=== PATIENT | male | born 1965 | race Two or more races ===

== ENCOUNTER 2024-04-17 11:05 | Outpatient (AMB) | payer MEDICAID, SELFPAY ==
--- NOTE | 2024-04-17 11:07 | A.SPINEOV_ITS ---
Intake Visit Reasons: low back pain Intake Note: Mr. Scott is here today c/o pain in the back of both legs. Refurbish Technician Required: Yes Refurbish Technician Name: Tablet Allergies No Known Allergies Allergy (Verified 04/17/24 11:08) Assessment & Plan Assessment & Plan (1) Lumbar disc herniation: Code(s): M51.26 - Other intervertebral disc displacement, lumbar region Category: Medical Plan Dear Garry, Thank you for referring Mr Scott to our office today. This is a very nice 58-year-old gentleman who suffered an unfortunate incident where he fractured his penis during intercourse. He ended up undergoing a 6 hour surgery to repair that. He had been having a little bit of right leg pain before the surgery, but after the surgery he noticed an increase in his back pain and bilateral leg pain, right greater than left. It goes down the back of his legs into his calves. He was trying to deal with it just using Motrin, lidocaine patches and cyclobenzaprine. Unfortunately the pain got so bad that he has been unable to walk more than short distances without having to sit down. He is tossing and turning all night. He underwent an MRI at the [facility] showing herniated disc at L4-5 more off to the right side. He was referred to us urgently because of the amount of pain he has been in. He has been mostly just staying low Ki not doing much activity. He has been out of work. He can not participate in any kind of activity. He has not started any physical therapy or had any cortisone injections yet. PMH: He is a diabetic, but in generally tells me his A1c is generally in a good range and his blood sugars are well controlled on metformin. He had recent repair of a penile fracture. He tells me he has regained function of his penis but not back to completely normal. History of an appendectomy and high cholesterol. No other major medical problems. Social hx: He does not smoke, drink use any recreational drugs Medications: Baby aspirin, atorvastatin, cyclobenzaprine, famotidine, ibuprofen, metformin, cyclobenzaprine Allergies: None Physical exam: Visit done with the help of an golf cart repairer through the iPad, the patient has positive straight leg raise on the right leg at 30 degrees, the left leg at 45 degrees. He has some mild weakness of his right dorsiflexion. I would rate this as 4-5. He has an antalgic gait and difficulty just standing up into a vertical position. Reflexes are intact. Imaging review: Lumbar MRI done at the [facility] about 1 week ago showing herniated disc at L4-5 causing moderate to severe central canal stenosis. Disc herniation appears to be set off more slightly to the right. Impression: 58-year-old male presents with herniated disc at L4-5 with bilateral lower extremity pain, right greater than left. He has a little bit of weakness in his right dorsiflexion which I would rate as 4-5. No sensory loss. He has significant pain with standing and walking, even in the office here today he is very uncomfortable just getting up into a vertical position. I reviewed his MRI with him, with the help of an golf cart repairer, and explained to him that he has a herniated disc at the L4-5 causing moderate to severe central canal stenosis and compression of both the L5 nerves in the lateral recess. We discussed the fact that 90% of these get better on their own if given enough time. He has now had the pain for 2 months or more and it has only been esc alating. He can barely walk, he can barely sleep. He does have weakness in his right foot with positive straight leg raise bilaterally. I offered him the option of going to PT or considering injection versus lumbar microdiskectomy. The patient feels like he is just in too much pain to be able to tolerate doing those other things and wishes to consider surgery. I reviewed the images with Dr. Anderson who agrees a right-sided approach for L4-5 microdiskectomy would be reasonable. Pt was given risk and benefits of surgery including but not limited to infection, hematoma , nerve injury,durotomy, weakness,bowel/bladder injury, persistent pain, recurrent lumbar disc as well as the option to continue with conservative treatment and patient wishes to proceed with surgery. Pt is aware they should stop their motrin, aspirin 7 days prior to surgery. All questions were answered to the best of our ability. If there is anything about this patients medical history that we have overlooked or concerns you have about us proceeding with surgery we would appreciate any input you can offer. Thank you for allowing us to care for your patient. The total time spent with this visit with this patient was 45 minutes reviewing history, physical exam, lumbar imaging review, and implementation of treatment plan or further diagnostic testing Blayne Anderson MD,PhD [facility] Coding Level of Care Code New Pt Level 4 (01393) Diagnoses Lumbar disc herniation M51.26
== END 2024-04-17 11:56 | disposition home or self-care (01) ==
PROVIDERS: PCP Nurse Practitioner Family; Referring Provider Nurse Practitioner Family; Visit Provider Physician Assistant
DX: M51.26 Other intervertebral disc displacement, lumbar region (principal)
CPT/HCPCS: 99204

== ENCOUNTER → 2024-04-17 11:05 | Outpatient (BNVA) | payer MEDICAID, SELFPAY | PROVIDERS: PCP Nurse Practitioner Family; Visit Provider Physician Assistant | DX: M51.26 Other intervertebral disc displacement, lumbar region (principal) | CPT/HCPCS: 99212 ==

== ENCOUNTER → 2024-05-07 13:08 | Outpatient (BNV) | payer MEDICAID, SELFPAY | PROVIDERS: Visit Provider Internal Medicine | DX: M51.26 Other intervertebral disc displacement, lumbar region (principal); Z01.810 Encounter for preprocedural cardiovascular examination | CPT/HCPCS: 93010 ==

== ENCOUNTER 2024-05-21 06:02 | Day surgery (SDC) | payer MEDICAID, SELFPAY ==
--- NOTE | 2024-05-07 | ECG_ITS ---
Test Reason : PREOP Blood Pressure : / mmHG Vent. Rate : 066 BPM Atrial Rate : 066 BPM P-R Int : 132 ms QRS Dur : 096 ms QT Int : 392 ms P-R-T Axes : 037 007 034 degrees QTc Int : 410 ms Normal sinus rhythm Normal ECG No previous ECGs available Referred By: Ashley Farrell Electronically Signed By:SANDRA SMITH
[2024-05-07 12:04] VITALS: BP 141/83; PULSE 68; RESP 16; O2SAT 99; BMI 27.4
--- NOTE | 2024-05-07 12:48 | HO.ANESPROP2 ---
Documented by User: Ashley Farrell NP 05/19/24 13:23 HPI - Anesthesia Eval Consult details Narrative: 58yo M for Right L4-5 Microlumbar discectomy, 05/21/24 No recent illness Rare, atypical CP. States had full heart work up in [facility] for same and it all checked out ok. Unable to remember when. No SOB. Activity limited by back pain. DM: Rarely checks POC. ~ 144 GERD: H2 block prn. Needs ~ 1 x weekly PMFSH Active Problems Active Problems: All Active Problems Lumbar disc herniation (Acute) Past Medical History Medical History Leg pain, bilateral Back pain Diabetes HLD (hyperlipidemia) GERD (gastroesophageal reflux disease) History of injury of penis Family History Family history of problems with anesthesia: No Surgical History Surgical History Hx of surgical procedure (~11/2023) Hx of appendectomy History of Problems with Anesthesia: No Social History Social History Are you a primary caregivers non medical to a significant other at home: No Do you presently have visiting nurse or other home services: No Patient Tobacco Use Status: Never used Tobacco Use of substances other than those prescribed or required for medical reasons: No Have you been hit, kicked, punched, or otherwise hurt by someone within the past year? If so, by whom?: No Are you DNR?: No Advance Directives: No Advance Directives Information Provided: Yes Advance Directives on File: No Recently lost weight without trying: No Nutrition Risks: No Nutritional Risk Poor oral hygiene: No Meds Allergies Allergy/AdvReac Type Severity Reaction Status Date / Time No Known Allergies Allergy Verified 05/21/24 06:14 Home Medications ?Medication ?Instructions ?Recorded ?Confirmed ?Last Taken ?Type aspirin 81 mg tablet,delayed 81 mg PO DAILY 05/06/24 05/21/24 05/18/24 History release atorvastatin 20 mg tablet 20 mg PO DAILY 05/06/24 05/06/24 Unknown History cyclobenzaprine 10 mg tablet 10 mg PO BID PRN muscle spasm 05/06/24 05/06/24 Unknown History famotidine 40 mg tablet 40 mg PO DAILY PRN Gastric Reflux 05/06/24 05/21/24 05/21/24 History lidocaine 5 % topical patch 1 patch topical Q3D 05/06/24 05/06/24 Unknown History methocarbamol 750 mg tablet 750 mg PO Q6H PRN Pain 05/06/24 05/06/24 Unknown History metformin 1,000 mg tablet 1,000 mg PO BID 05/07/24 05/07/24 Unknown History Exam Height,Weight and Vital Signs: Height 5 ft 7 in Weight 79.5 kg Last Vital Signs Pulse 68 05/07/24 12:04 Resp 16 05/07/24 12:04 BP 141/83 H 05/07/24 12:04 Pulse Ox 99 05/07/24 12:04 O2 Del Method Room Air 05/07/24 12:04 Pertinent Lab Results Pertinent Lab Results: Lab Results 05/07/24 Range/Units 13:08 WBC 8.1 (4.8-10.8) X10*3/uL RBC 4.85 (4.60-5.80) X10*6/uL Hgb 14.1 (14.0-18.0) g/dl Hct 43.3 (42.0-52.0) % MCV 89.3 (80.0-98.0) fL MCH 29.1 (27.0-33.0) pg MCHC 32.6 (31.0-36.0) g/dl RDW 12.5 (11.0-16.0) % Plt Count 252 (160-400) X10*3/uL MPV 10.9 (9.4-12.4) fL Absolute Nucleated RBC 0.000 (0.0-0.012) X10*3/uL Nucleated RBC % (auto) 0.0 (0.0-0.2) /100WBC Sodium 139 (135-145) mmol/L Potassium 4.3 (3.3-5.1) mmol/L Chloride 108 (96-108) mmol/L Carbon Dioxide 27 (22-29) mmol/L Anion Gap 8 L (12-20) BUN 22 H (9-16) mg/dL Creatinine 0.87 (0.5-1.4) mg/dL Estim Creat Clear Calc 92.4 Estimated GFR > 60 Random Glucose 143 H (60-115) mg/dL Estimat Average Glucose 134 mg/dL Hemoglobin A1c % 6.3 H (<6.0) % Calcium 8.8 (8.4-10.2) mg/dL Narrative Narrative: EKG 04/2024 Vent. Rate : 066 BPM Atrial Rate : 066 BPM P-R Int : 132 ms QRS Dur : 096 ms QT Int : 392 ms P-R-T Axes : 037 007 034 degrees QTc Int : 410 ms Normal sinus rhythm Normal ECG No previous ECGs available Airway Mallampati Class: II TM Dist: >3cm Neck ROM: Full Loose/Missing/Broken Teeth: Yes (Molars extracted, Crowned molars) Heart: RRR Lungs: CTAB Assessment and Plan Assessment Anesthesia Assessment: Anesthesia Plan Discussed and PAT Visit Final Anesthetic Review Family History of Problems with Anesthesia: No History of Problems with Anesthesia: No Documented by User: Meghan Clark MD 05/21/24 07:36 PMFSH Past Medical History Medical History Leg pain, bilateral Back pain Diabetes HLD (hyperlipidemia) GERD (gastroesophageal reflux disease) History of injury of penis Surgical History Surgical History Hx of surgical procedure (~11/2023) Hx of appendectomy Social History Social History Are you a primary caregivers non medical to a significant other at home: No Do you presently have visiting nurse or other home services: No Patient Tobacco Use Status: Never used Tobacco Use of substances other than those prescribed or required for medical reasons: No Have you been hit, kicked, punched, or otherwise hurt by someone within the past year? If so, by whom?: No Are you DNR?: No Advance Directives: No Advance Directives Information Provided: Yes Advance Directives on File: No Recently lost weight without trying: No Nutrition Risks: No Nutritional Risk Poor oral hygiene: No Meds Allergies Allergy/AdvReac Type Severity Reaction Status Date / Time No Known Allergies Allergy Verified 05/21/24 06:14 Home Medications ?Medication ?Instructions ?Recorded ?Confirmed ?Last Taken ?Type aspirin 81 mg tablet,delayed 81 mg PO DAILY 05/06/24 05/21/24 05/18/24 History release atorvastatin 20 mg tablet 20 mg PO DAILY 05/06/24 05/06/24 Unknown History cyclobenzaprine 10 mg tablet 10 mg PO BID PRN muscle spasm 05/06/24 05/06/24 Unknown History famotidine 40 mg tablet 40 mg PO DAILY PRN Gastric Reflux 05/06/24 05/21/24 05/21/24 History lidocaine 5 % topical patch 1 patch topical Q3D 05/06/24 05/06/24 Unknown History methocarbamol 750 mg tablet 750 mg PO Q6H PRN Pain 05/06/24 05/06/24 Unknown History metformin 1,000 mg tablet 1,000 mg PO BID 05/07/24 05/07/24 Unknown History Assessment and Plan Final Anesthetic Review NPO: Yes ASA Class: II Final Preanesthetic Review: Meds/Allgs Chart Reviewed, Consent Obtained/Reviewed and Anes Risks/Benef Reviewed Patient Risk: Low Procedure Risk: Intermediate Anesthetic Plan Anesthetic Plan: GA Disposition: Standard PACU
[2024-05-07 13:51] LABS: Hematocrit 43.3 % (42.0-52.0); Hemoglobin 14.1 g/dl (14.0-18.0); Mean Corpuscular HGB Conc 32.6 g/dl (31.0-36.0); Mean Corpuscular Hemoglobin 29.1 pg (27.0-33.0); Mean Corpuscular Volume 89.3 fL (80.0-98.0); Mean Platelet Volume 10.9 fL (9.4-12.4); Platelet Count 252 X10*3/uL (160-400); Red Blood Count 4.85 X10*6/uL (4.60-5.80); Red Cell Distribution Width 12.5 % (11.0-16.0); White Blood Count 8.1 X10*3/uL (4.8-10.8)
[2024-05-07 13:56] LABS: Estimated Average Glucose 134 mg/dL; Hemoglobin A1C 167.0807 umol/L; Hemoglobin A1c % 6.3 % (<6.0); Total Hemoglobin (HGBA1C) 3645.8338 umol/L
[2024-05-07 14:18] LABS: Anion Gap 8 (12-20); Blood Urea Nitrogen 22 mg/dL (9-16); Calcium 8.8 mg/dL (8.4-10.2); Carbon Dioxide 27 mmol/L (22-29); Chloride 108 mmol/L (96-108); Creatinine Clr Calc Pharmacy 92.4; Estimated Glomerular Filt Rate > 60; Glucose Random 143 mg/dL (60-115); Potassium 4.3 mmol/L (3.3-5.1); Sodium 139 mmol/L (135-145)
[2024-05-21] VITALS (11 sets, daily range): BP systolic 110–139; BP diastolic 62–79; PULSE 53–79; RESP 12–16; TEMP 35.8–36.4; O2SAT 95–100
[2024-05-21] MEDS: methocarbamoL 750 MG TABLET PO (06:33)
[2024-05-21] MEDS: Gabapentin 300 MG CAPSULE PO (06:33)
[2024-05-21] MEDS: Lactated Ringers 1,000 ML 100 ML IVCONT (06:45)
[2024-05-21 06:53] LABS: Glucose, Whole Blood 106 mg/dL (60-115)
--- NOTE | 2024-05-21 06:59 | P.HPSUR_ITS ---
Pre-Procedural Eval Section A - 24 Hr Update-Section A only Date of Service: 05/21/24 The patient is an INPATIENT: No Changes since office visit: No Cold of Flu in the past 2 weeks, No New Medical Problems, No Changes in Medication and No Patient answered all questions The patient has been examined within 24 hours of the surgical procedure. The History & Physical has been completed within 30 days and I have reviewed it.: No Section B - Complete if H&P > 30 days Chief Complaint: Other intervertebral disc displacement, lumbar reg Allergies: Allergies Allergy/AdvReac Type Severity Reaction Status Date / Time No Known Allergies Allergy Verified 05/21/24 06:14 Review of Systems Sugical H&P ROS: Negative: Constitution, Cardiovascular, Respiratory, Neurological, Psychiatric, Hem-Onc, Allergic/Immunologic, Gastrointestinal, Genitourinary, Musculoskeletal, Integumentary, Endocrine and Eyes/Ears/Nose/Thr oat Exam Surgical H&P Exam: Normal: HEENT, Normal: Heart, Normal: Lungs, Normal: Extremities, Normal: Abdomen, Normal: Skin and Normal: Neurological (awake, alert,oriented x 3, weakness right DF 4/5 ) Plan Diagnosis/Plan: Unchanged right L4-5 microdiskectomy Time Spent With Patient Time: Total time managing care of this patient today __6__ minutes.
--- NOTE | 2024-05-21 08:23 | P.OP_ITS ---
Operative Note Operative Note Date of Service: 05/21/24 Narrative: Preoperative diagnosis: Right L5 lumbar radiculopathy due to disc herniation Postoperative diagnosis: Same Procedure: Right L4-5 lumbar microdiskectomy with microscope Surgeon: Daniel Anderson MD, PhD Carbon Coating Machine Operator: vijaya Pham This patient is suffering from right lumbar radiculopathy with mild weakness. The patient was offered a lumbar microdiskectomy to decompress the nerve root. The procedure complications were explained. The patient was consented. The patient was brought to the operating room and endotracheally intubated. The patient was turned in a prone position on the Mariano frame. Prepping and draping was done followed by time-out. A mid lumbar incision was made followed by release of the paravertebral muscles on the right side to expose the L4-5 interspace. An intraoperative x-rays obtained to confirm the correct level. The microscope was brought in. A right laminotomy was done followed by opening of the flavum ligament. The L5 nerve root was identified and retracted medially to expose the L4-5 disc space. I could palpate a disc herniation medial from the L5 nerve root, which I carefully removed with a pituitary. The disc space was inspected and any residual disc fragments were removed. This resulted in an excellent decompression of the right L5 nerve root. A long nerve was moved under the thecal sac without resistance. Hemostasis was done. The microscope was removed. Marcaine was injected intramuscularly.The incision was closed in two layers. Steri-Strips used to approximate the incision. An op-site were taken there was used to cover the incision. All sponge and needle counts were correct. Patient was extubated and transported in stable condition to recovery room. this procedure was done with the aid of a physician assistant bookkeeper who performed the initial exposure until the microscope was brought in and performed the closure of the incision. Anesthesia: General Blood loss: 10 mL Complications: None Specimen: None Surgical time: 30 minutes Disposition: Discharge home
--- NOTE | 2024-05-21 08:30 | PM.DS ---
DS: Providers Provider Date of Service: 05/21/24 Date of discharge: 05/21/24 Primary care physician: Unknown Physician Admitting clinician: Daniel Anderson DS: Diagnosis Discharge Diagnosis (1) Lumbar disc herniation: Status: Acute DS: Summary Time Attestation Discharge Coordination Time (in mins): 5 Quality: Safe Use of Opioids Does Pt have an Active Cancer Diagnosis on the Problem List?: No Quality: Stroke Does the patient have a stroke diagnosis?: No Physical Exam Vital Signs: Vital Signs: Last Vital Signs Temp 96.4 F L 05/21/24 06:50 Pulse 61 05/21/24 06:50 Resp 12 05/21/24 06:50 BP 123/72 05/21/24 06:50 Pulse Ox 98 05/21/24 06:50 O2 Del Method Room Air 05/21/24 06:50 BMI result Body Mass Index 27.4 DS: Data Data Completed and Pending Labs on day of discharge: Laboratory Results - last 24 hr 05/21/24 06:49 POC Glucose 106 Discharge Plan Discharge Patient Disposition: Home, Self-Care Referrals: Physician,Unknown J [Primary Care Provider] - 1 Week Discharge Medications: New docusate sodium [Colace] 100 mg capsule 100 mg PO BID Qty: 20 0RF oxycodone 5 mg tablet 5 mg PO Q4H PRN (Reason: pain) Qty: 20 0RF Rx Instructions: Partial Fill upon patient request. Continued cyclobenzaprine 10 mg tablet 10 mg PO BID PRN (Reason: muscle spasm) atorvastatin 20 mg tablet 20 mg PO DAILY famotidine 40 mg tablet 40 mg PO DAILY PRN (Reason: Gastric Reflux) methocarbamol 750 mg tablet 750 mg PO Q6H PRN (Reason: Pain) lidocaine 5 % adhesive patch,medicated 1 patch topical Q3D metformin 1,000 mg Tablet 1,000 mg PO BID Held aspirin 81 mg tablet,delayed release (DR/EC) 81 mg PO DAILY Hold Instructions: Resume on 05/28/24. You may resume aspirin 7 days after surgery Discharge Orders: Discharge Order (Routine); Ordered 05/21/24 Ordered By: Blayne Coelho Diet: Advance to usual diet Activity on Discharge: As tolerated Activity Restrictions/Additional Instructions: After your spinal surgery we ask you to observe the following restrictions/guidelines: Activity: It is normal to feel some discomfort as you increase your activity, but that will improve with time. We ask you avoid heavy lifting or acitivities that cause pain. As a general rule, 8lbs is a safe limit for lifting right after surgery. Walk as much as you feel comfortable but not to exhaustion. You will feel extra tired the first few days after surgery. Stay well hydrated. It is OK to walk up and down stairs You may return to driving when you are off narcotics (such as vicodin, oxycodone, dilaudid, etc), and you are back to normal functional capacity. If you have any concerns please check with office before driving. Return to work is specific to each patient and each surgery, so please speak with your doctor/PA at first follow up. Please bring paperwork such as FMLA at that time if you need it filled out. Medications: You may resume aspirin 7 days after surgery For optimum pain control, it is best to start with a combination of 500 mg of Tylenol every 4 hours with 600 mg of Motrin every 8 hours, and use narcotics as needed in between for breakthrough pain. We will give you a short supply of narcotics after surgery (usually one weeks worth). If you need more please call the office but do not use more than prescribed. You will need to give our office 48 hours notice if you need narcotics refilled and we do not fill narcotics on weekends or evenings. If you are on a narcotic, it is a good idea to take a stool softener such as colace or senna to avoid constipation If you take blood thinner such as aspirin, Plavix, Coumadin, Effient, Eliquis etc for conditions such as Afib, DVT, Pulmonary embolus, coronary disease, stents etc please speak with your surgeon about specific details as to when you can resume these medications. You can resume NSAIDs on post op day 1 (eg: Motrin, Naproxen, etc). Follow up: Please call the office, , after surgery to arrange a 3 week follow up for wound check. Wound Care: You may remove your dressing on the first day after surgery. ?You may ?leave open to air. Please do not remove the steri strips underneath. they will fall off on their own in one week. IT IS NORMAL FOR THE WOUND TO OOZE OR BE BLOODY FOR A FEW DAYS AFTER SURGERY. ?IF THIS HAPPENS JUST PLACE NEW DRESSING OVER IT TO AVOID STAINING CLOTHES. You may shower on post op day # 1 We ask that you do not let the water soak the wound. If it does get wet, just towel dry lightly. Please do not scrub your incision or place any type of chemical/ointment on the wound. No tub baths, pools or jacuzzis for one month. If you have any leaking or redness from your wound, or fevers, please call office Print Language: Sinhala
[2024-05-21] MEDS: oxyCODONE HCl Immed Release 5 MG TABLET PO (09:09)
[2024-05-21] MEDS: HYDROmorphone HCl 0.5 MG/0.5 ML SYRINGE 0.25 MG IVPUSH ×2 (09:21→09:26)
== END 2024-05-21 10:40 | disposition home or self-care (01) ==
PROVIDERS: Nurse Practitioner; Visit Provider Neurological Surgery
PROC: (CPT 63030; principal; 2024-05-21 07:30)
DX: M51.16 Intervertebral disc disorders with radiculopathy, lumbar region (principal); E11.9 Type 2 diabetes mellitus without complications; E78.00 Pure hypercholesterolemia, unspecified; Z87.81 Personal history of (healed) traumatic fracture; Z79.1 Long term (current) use of non-steroidal anti-inflammatories (NSAID); Z79.84 Long term (current) use of oral hypoglycemic drugs; Z79.82 Long term (current) use of aspirin; Z79.899 Other long term (current) drug therapy
CPT/HCPCS: 63030; 36415; 80048; 82947; 83036; 85027; 93005; J0131; J0690; J1100; J1171; J1885; J2003; J2250; J2405; J2704; J3010

== ENCOUNTER → 2024-05-21 06:02 | Outpatient (BNV) | payer MEDICAID, SELFPAY | PROVIDERS: Visit Provider Neurological Surgery | DX: M51.26 Other intervertebral disc displacement, lumbar region (principal); M54.16 Radiculopathy, lumbar region | CPT/HCPCS: 63030; 99499 ==

== ENCOUNTER 2024-05-24 09:20 | Emergency (ER) | payer MEDICAID, SELFPAY ==
--- NOTE | ~2024-05-24 | XR_ITS ---
EXAMINATION: XR LUMBOSACRAL SPINE CLINICAL INFORMATION: Lower back pain. COMPARISON: None available. TECHNIQUE: Three views of the lumbosacral spine. FINDINGS: Straightening of lumbar lordosis. The lumbar vertebral bodies demonstrate normal height. Overall sagittal alignment is maintained. Small endplate degenerative osteophytes at L3-L4 through L5-S1. Mild intervertebral disc space narrowing at L5-S1. Degenerative facet arthropathy at multiple levels. The paraspinous soft tissues appear unremarkable. Bilateral sacroiliac joints are intact. XR/XR lumbar spine 2-3V IMPRESSION: No radiographic evidence of acute abnormality involving the lumbar spine. Mild degenerative changes at L3-L4 through L5-S1. Electronically signed by: Kevin Ruiz MD 05/24/2024 11:19 AM [facility] PARKIN[facility]
[2024-05-24 09:24] VITALS: BP 138/61; PULSE 61; RESP 16; TEMP 36.8; O2SAT 98; BMI 27.4
--- NOTE | 2024-05-24 09:42 | PC.NURSE ---
patient to ED from home with cc low back pain post surgery on . He states that on Saturday after his surgery he was feeling ok until the evening when his pain got really bad. On Saturday it was even worse and he has been unable to lie down and sleep. He has been taking the prescribed pain medications (oxycodone and motrin) but says they are only helping a little bit and he still has severe pain (8/10). Steri strips on surgical site clean and dry. No redness or warmth Pt ambulating slowly with standby.
--- NOTE | 2024-05-24 10:52 | ED_ITS ---
HPI - Back Pain/Injury General Chief Complaint: Back Pain/Injury Stated Complaint: Back pain rec surgery Time Seen by Provider: 05/24/24 10:01 Source: patient Mode of arrival: ambulatory Limitations: no limitations History of Present Illness ED Provider: Anita BARRIENTOS HPI Narrative: This is a 58-year-old male history of lumbar disc herniation status post right L4-5 lumbar microdiskectomy with microscope on 05/21/2024 done here at this hospital with Dr. Anderson. Patient comes in with pain at incision site/mid lower back that radiates into right lower extremity lateral aspect down to the lateral aspect of the calf and into his 1st great toe. He reports pain is significant he has been taking oxycodone 5 mg p.o. q.4 hours as needed for pain as well as ibuprofen with little to no improvement. He has been using crutches for ambulation as he states bearing weight really hurts. He denies numbness, tingling, saddle anesthesias, weakness, incontinence of stool or urine or retention. He also denies fevers, chills. No trauma or falls. Related Data Home Medications ?Medication ?Instructions ?Recorded ?Confirmed aspirin 81 mg tablet,delayed 81 mg PO DAILY 05/06/24 05/21/24 release atorvastatin 20 mg tablet 20 mg PO DAILY 05/06/24 05/06/24 cyclobenzaprine 10 mg tablet 10 mg PO BID PRN muscle spasm 05/06/24 05/06/24 famotidine 40 mg tablet 40 mg PO DAILY PRN Gastric Reflux 05/06/24 05/21/24 lidocaine 5 % topical patch 1 patch topical Q3D 05/06/24 05/06/24 methocarbamol 750 mg tablet 750 mg PO Q6H PRN Pain 05/06/24 05/06/24 metformin 1,000 mg tablet 1,000 mg PO BID 05/07/24 05/07/24 Previous Rx's ?Medication ?Instructions ?Recorded docusate sodium 100 mg capsule 100 mg PO BID #20 caps 05/21/24 (Colace) oxycodone 5 mg tablet 5 mg PO Q4H PRN pain #20 tabs 05/21/24 Allergies Allergy/AdvReac Type Severity Reaction Status Date / Time No Known Allergies Allergy Verified 05/24/24 09:27 Review of Systems Review of Systems: Yes all other systems are reviewed and are negative [facility] Past Medical History Attestation statement: The following information was validated with the patient. Source: old records reviewed and nursing notes reviewed Medical History Leg pain, bilateral Back pain Diabetes HLD (hyperlipidemia) GERD (gastroesophageal reflux disease) History of injury of penis Surgical History Hx of surgical procedure (~11/2023) Hx of appendectomy Social History Social History Are you a primary health care marketing specialist to a significant other at home: No Do you presently have visiting nurse or other home services: No Patient Tobacco Use Status: Never used Tobacco Smoked in Last 30 Days: No Use of substances other than those prescribed or required for medical reasons: No Advance Directives: No Advance Directives Information Provided: Yes Do you have a plan to hurt others: No Plan Physical Exam Vital Signs: Vital Signs: Last Vital Signs Temp 98.3 F 05/24/24 09:24 Pulse 57 05/24/24 12:12 Resp 17 05/24/24 12:12 BP 124/74 05/24/24 12:12 Pulse Ox 98 05/24/24 12:12 O2 Del Method Room Air 05/24/24 12:12 BMI result Body Mass Index 27.4 vss Appearance: Alert.? Oriented X3.? No acute distress.? Head: Normocephalic, atraumatic, no step-offs or deformities Eyes: Pupils equal, round and reactive to light.? CVS: Normal heart rate and rhythm.? Pulses normal.? Respiratory: No respiratory distress.? Breath sounds normal.? Abdomen: Soft and nontender.? Skin: Skin warm and dry.? Normal skin color.? Normal skin turgor.? Extremities: No lower extremity edema.? No calf ttp, negative Tanya bilaterally.. 5/5 strength to bilateral upper and lower extremities Back: Midline tenderness around L4-L5 with surrounding bilateral paraspinous muscle tenderness to palpation. Dressing in that region clean, dry, intact. no C-spine tenderness, full range of motion, no CVA tenderness bilaterally. Normal sensation to bilateral lower extremities. No clonus. Neuro: Oriented X 3.? No motor deficit.? No sensory deficit. CN 2-12 intact Course Reevaluation(s) Reevaluation #1: Patient reports significant improvement after Dilaudid. Lumbar spine no radiographic evidence of acute abnormality involving the lumbar spine. Mild degenerative changes L3-L4 through L5- S1 Discussed case with Dr. Anderson, will have him call the office tomorrow for prompt follow-up. Educated patient on diagnosis and treatment plan, answered all question, patient verbalizes understanding. At this time patient will be discharged home, advised to return with new or worsening symptoms. Educated on worrisome signs and symptoms and when to return. At this time I feel comfortable discharge home. Time: 13:05 Medications Administered Discontinued Medications Generic Name Dose Route Start Last Admin Trade Name Freq PRN Reason Stop Dose Admin Hydromorphone HCl 2 mg 05/24/24 10:50 05/24/24 11:01 Hydromorphone Hcl 2 Mg Tablet PO 05/24/24 10:51 2 mg ONCE ONE Administration Medical Decision Making Medical Decision Making [facility] Narrative: 58-year-old male presents with back pain with radiation to right lower extremity he is status post microdiskectomy L4/5 on 05/21/2024. Physical exam Midline tenderness around L4-L5 with surrounding bilateral paraspinous muscle tenderness to palpation. no C-spine tenderness, full range of motion, no CVA tenderness bilaterally. Normal sensation to bilateral lower extremities. No clonus. History and physical exam likely with normal postoperative pain unlikely complication from procedure. I do not suspect cauda equina, cord compression. No signs of infection. Unlikely DVT or arterial occlusion. Plan pain control, x-ray will reach out to Dr. Anderson surgeon. Differential Diagnosis Differential Diagnoses: The differential diagnosis associated with the presentation includes (History and physical exam likely with normal postoperative pain unlikely complication from procedure. I do not suspect cauda equina, cord compression. No signs of infection. Unlikely DVT or arterial occlusion.) Admission/Observation Consideration of admission/observation: Escalation of care including admission/observation considered Lab Data [facility] Lab Attestation statement: I reviewed the patient's lab results. Discharge Plan Discharge Clinical Impression: Lumbar radiculopathy Patient Disposition: Home, Self-Care Instructions: Lumbar Radiculopathy (ED), Back Pain (ED) Additional Instructions: Take your medications as prescribed. If you were prescribed antibiotics today, it is important that you take your medication to their entirety, do not skip any doses, do not finish them early. Follow-up with your primary care provider this week. Return to the emergency department with new or worsening symptoms. Such as fevers, chills, chest pain, shortness of breath, nausea, vomiting, dizziness, headache, vision changes, lethargy In case of emergency call 911 Continue taking your meds as prescribed. Call Dr. Anderson office first thing tomorrow morning Return with new or worsening symptoms such as numbness, tingling, inability to control bladder or bowel or worsening pain. Prescriptions: No Action cyclobenzaprine 10 mg tablet 10 mg PO BID PRN (Reason: muscle spasm) atorvastatin 20 mg tablet 20 mg PO DAILY famotidine 40 mg tablet 40 mg PO DAILY PRN (Reason: Gastric Reflux) aspirin 81 mg tablet,delayed release (DR/EC) 81 mg PO DAILY methocarbamol 750 mg tablet 750 mg PO Q6H PRN (Reason: Pain) lidocaine 5 % adhesive patch,medicated 1 patch topical Q3D metformin 1,000 mg Tablet 1,000 mg PO BID docusate sodium [Colace] 100 mg capsule 100 mg PO BID Qty: 20 0RF oxycodone 5 mg tablet 5 mg PO Q4H PRN (Reason: pain) Qty: 20 0RF Rx Instructions: Partial Fill upon patient request. Referrals: Daniel Anderson MD, PhD [Physician] - 1 day Stand Alone Forms: Work/School Release Print Language: [place] Ver[place]an
[2024-05-24] MEDS: HYDROmorphone HCl 2 MG TABLET PO (11:01)
[2024-05-24 12:12] VITALS: BP 124/74; PULSE 57; RESP 17; O2SAT 98
[2024-05-24] MEDS: HYDROmorphone HCl 2 MG TABLET 1 MG PO (13:21)
[2024-05-24 13:27] VITALS: BP 124/74; PULSE 57; RESP 17; TEMP 36.8; O2SAT 98
== END 2024-05-24 13:27 | disposition home or self-care (01) ==
PROVIDERS: Emergency Provider Emergency Medicine Emergency Medical Services
DX: M54.16 Radiculopathy, lumbar region (principal); Z79.899 Other long term (current) drug therapy
CPT/HCPCS: 72100; 99283; 99284

== ENCOUNTER 2024-05-25 14:21 | Outpatient (AMB) | payer MEDICAID, SELFPAY ==
--- NOTE | 2024-05-25 14:27 | HO.SPINEOV ---
Intake Visit Reasons: ED f/up Intake Note: Mr. Scott is here to F/u after being in the ED and post-op. Software Engineer Advisor Required: No Allergies No Known Allergies Allergy (Verified 05/24/24 09:27) Assessment & Plan Assessment & Plan (1) S/P lumbar microdiscectomy: Code(s): Z98.890 - Other specified postprocedural states Category: Surgical Plan Software Engineer Advisor used for this encounter: [id number] Yony comes in today as a follow up after presenting to the ED over the weekend for return of severe right sided lumbar radiculopathy. He reports that after the first day of surgery he had complete resolution of his pain. Unfortunately at about 48 hours after surgery he began having severe shooting right-sided radiculopathy once more. He does report that his left radiculopathy is completely gone, but feels as though his right side is just as bad if not worse than before surgery. He denies any numbness/tingling associated with the pain. He denies any bowel/bladder issues, or saddle anesthesia. He ambulates well with a slightly antalgic gait in his using a single crutch to help him with ambulation. He does not appear to have any difficulties a plantar or dorsiflexion. He is wearing a back brace which he purchased over the counter. His Steri-Strips remain in place from the surgery and have not yet fallen off. There is some palpable edema around the incision site but it is clean with no signs of erythema, or fluctuance. It is not warm to touch. There is no drainage. Yony is most likely suffering from severe postoperative inflammation given the description of his symptoms recurrent abruptly after a 1-2 day of symptom resolution. I did review the operative notes from his surgery which seem as though Dr. Anderson was able to get a good decompression from the microdiskectomy. The obvious differential for postoperative inflammation after microdiskectomy surgery with recurrence of radiculopathy is a recurrent disc herniation. I think it is too close to surgery to attempt to obtain MRI imaging at this time as the imaging with likely be confounded by the healing surgical site. I would like to trial the patient on a course of prednisone accompanied by gabapentin in an effort to help mitigate his symptoms and reduce his inflammation. He was encouraged to call our office back in follow up again in 1 week if his symptoms do not reduced in severity. Tal Anderson MD,PhD [facility] Medications: New gabapentin 300 mg PO TID 30 caps 0RF nerve pain methylprednisolone PO PER PKG DIR for 6 days 21 ea 0RF Coding Level of Care Code Global (90865) Diagnoses S/P lumbar microdiscectomy Z98.890
== END 2024-05-25 15:09 | disposition home or self-care (01) ==
LOC: HO.HNS 14:22
PROVIDERS: Visit Provider Physician Assistant
DX: Z98.890 Other specified postprocedural states (principal)
CPT/HCPCS: 99024

== ENCOUNTER → 2024-05-25 14:21 | Outpatient (BNVA) | payer MEDICAID, SELFPAY | PROVIDERS: Visit Provider Physician Assistant | DX: Z98.890 Other specified postprocedural states (principal) | CPT/HCPCS: 99212 ==

== ENCOUNTER 2024-06-03 14:58 | Outpatient (REF) | payer MEDICAID, SELFPAY ==
--- NOTE | ~2024-06-03 | MR_ITS ---
EXAMINATION: MR LUMBAR SPINE WITHOUT AND WITH CONTRAST CLINICAL INFORMATION: Postprocedural radicular pain to the right lumbar spine. Recent disc herniation with microdiscectomy on May 21, 2024. COMPARISON: None available. TECHNIQUE: MRI of the lumbar spine was obtained using routine sequences with and without contrast. Intravenous contrast: Gadolinium Gadavist 8.0 mL without reported immediate complications FINDINGS: [Rib-bearing vertebra labeled T12. Marginal osteophyte formation and disc desiccation from L3-4 to L4-5. No bone marrow STIR signal abnormality. The alignment is normal. Hyperintense T2 STIR with heterogeneous enhancement at the posterior right L4-5 soft tissues without drainable fluid collection. Conus medullaris ends at pedicle of L1 with normal signal. T12-L1: No herniated disc. No neuroforamina stenosis. L1-2: No herniated disc. No neuroforamina stenosis. L2-3: Broad-based disc bulging. Facet joint hypertrophy. No compression upon neural elements. L3-4: Broad-based disc bulging. Facet joint and ligamentum flavum hypertrophy. Reduced AP diameter of the thecal sac and the neural foramina likely encroaching the neural elements. L4-5: Right hemilaminectomy. Broad-based central/right subarticular and foraminal disc herniation reducing the AP diameter of the thecal sac encroaching the neural elements of the thecal sac and the exiting nerve root of L4 and L5. Right neuroforamina stenosis, right greater than left. Facet joint hypertrophy bilaterally. Hypertrophy of the ligamentum flavum. L5-S1: Broad-based disc bulging. Facet joint hypertrophy. Reduced AP diameter of the thecal sac and the neural foramina. No compression upon neural elements. No epidural hematoma or fluid collections. MR/MR lumbar spine wo/w con IMPRESSION: Retained disc herniation central/right subarticular/right foraminal L4-5 compressing the neural elements of the thecal sac and the right L5 and L4 exiting nerve roots. Line multilevel lumbar spondylosis L3-4 to L5-S1. Electronically signed by: Junito Basilio MD 06/04/2024 08:46 AM EST
[2024-06-03] MEDS: gadobutroL 10 ML VIAL IVPUSH (15:42)
== END 2024-06-03 14:59 | disposition home or self-care (01) ==
LOC: HO.MRI 14:58
PROVIDERS: Visit Provider Physician Assistant
DX: Z98.890 Other specified postprocedural states (principal)
CPT/HCPCS: 72158; A9585

== ENCOUNTER → 2024-06-03 14:58 | Outpatient (BNV) | payer MEDICAID, SELFPAY | PROVIDERS: Visit Provider Radiology Diagnostic Radiology | DX: M51.26 Other intervertebral disc displacement, lumbar region (principal) | CPT/HCPCS: 72158 ==

== ENCOUNTER 2024-06-10 06:44 | Day surgery (SDC) | payer MEDICAID, SELFPAY ==
[2024-06-10] VITALS (14 sets, daily range): BP systolic 113–135; BP diastolic 63–78; PULSE 60–83; RESP 16–18; TEMP 36.3–36.6; O2SAT 96–99; BMI 26.6
--- NOTE | 2024-06-10 07:21 | MHC.SHP ---
Pre-Procedural Eval Section A - 24 Hr Update-Section A only Date of Service: 06/10/24 Section B - Complete if H&P > 30 days Chief Complaint: Other intervertebral disc displacement, lumbar reg Allergies: Allergies Allergy/AdvReac Type Severity Reaction Status Date / Time No Known Allergies Allergy Verified 05/24/24 09:27 Review of Systems Sugical H&P ROS: Negative: Constitution, Cardiovascular, Respiratory, Neurological, Psychiatric, Hem-Onc, Allergic/Immunologic, Gastrointestinal, Genitourinary, Musculoskeletal, Integumentary, Endocrine and Eyes/Ears/Nose/Throat Exam Surgical H&P Exam: Not Evaluated: HEENT, Not Evaluated: Heart, Not Evaluated: Lungs, Not Evaluated: Extremities, Not Evaluated: Abdomen, Not Evaluated: Skin and Not Evaluated: Neurological Exam Comment: Patient is alert, oriented, in no acute distress. His proposed surgical incision site is clean, dry, intact. Plan Diagnosis/Plan: Unchanged I have reviewed the history and physical and performed a pertinent physical examination on my patient. No changes have occurred unless specified. Plan remains the same, redo right L4-5 lumbar decompression Time Spent With Patient Time: Total time managing care of this patient today _15___ minutes.
[2024-06-10 07:36] LABS: Glucose, Whole Blood 113 mg/dL (60-115)
[2024-06-10] MEDS: methocarbamoL 750 MG TABLET PO (07:48)
--- NOTE | 2024-06-10 08:25 | HO.ANESPROP2 ---
[facility] Active Problems Active Problems: All Active Problems S/P lumbar microdiscectomy (Acute) Lumbar disc herniation (Acute) Past Medical History Medical History Leg pain, bilateral Back pain Diabetes HLD (hyperlipidemia) GERD (gastroesophageal reflux disease) History of injury of penis Family History Family history of problems with anesthesia: No Surgical History Surgical History Hx of surgical procedure (~11/2023) Hx of appendectomy History of Problems with Anesthesia: No Social History Social History Are you a primary emergency care attendant to a significant other at home: No Do you presently have visiting nurse or other home services: No Patient Tobacco Use Status: Never used Tobacco Use of substances other than those prescribed or required for medical reasons: No Are you DNR?: No Advance Directives: No Advance Directives Information Provided: Yes Meds Allergies Allergy/AdvReac Type Severity Reaction Status Date / Time No Known Allergies Allergy Verified 06/10/24 07:26 Home Medications ?Medication ?Instructions ?Recorded ?Confirmed ?Last Taken ?Type aspirin 81 mg tablet,delayed 81 mg PO DAILY 05/06/24 05/21/24 05/18/24 History release atorvastatin 20 mg tablet 20 mg PO DAILY 05/06/24 05/06/24 Unknown History cyclobenzaprine 10 mg tablet 10 mg PO BID PRN muscle spasm 05/06/24 05/06/24 Unknown History famotidine 40 mg tablet 40 mg PO DAILY PRN Gastric Reflux 05/06/24 05/21/24 06/10/24 History lidocaine 5 % topical patch 1 patch topical Q3D 05/06/24 05/06/24 Unknown History methocarbamol 750 mg tablet 750 mg PO Q6H PRN Pain 05/06/24 05/06/24 Unknown History metformin 1,000 mg tablet 1,000 mg PO BID 05/07/24 05/07/24 Unknown History Exam Height,Weight and Vital Signs: Height 5 ft 7 in Weight 77.111 kg Last Vital Signs Temp 97.9 F 06/10/24 07:29 Pulse 61 06/10/24 07:29 Resp 16 06/10/24 07:29 BP 135/78 06/10/24 07:29 Pulse Ox 99 06/10/24 07:29 O2 Del Method Room Air 06/10/24 07:29 Pertinent Lab Results Pertinent Lab Results: Laboratory Tests 06/10/24 07:33 POC Glucose 113 Airway Mallampati Class: II TM Dist: >3cm Neck ROM: Full Assessment and Plan Assessment Anesthesia Assessment: Anesthesia Plan Discussed and Chart Reviewed Final Anesthetic Review Family History of Problems with Anesthesia: No History of Problems with Anesthesia: No NPO: Yes ASA Class: II Final Preanesthetic Review: No Changes in Pt Med Stat, Meds/Allgs Chart Reviewed, Consent Obtained/Reviewed and Anes Risks/Benef Reviewed Patient Risk: Intermediate Procedure Risk: Intermediate Anesthetic Plan Anesthetic Plan: GA Disposition: Standard PACU
--- NOTE | 2024-06-10 10:17 | PM.DS ---
DS: Providers Provider Date of Service: 06/10/24 Primary care physician: Unknown Physician DS: Summary Time Attestation Discharge Coordination Time (in mins): 15 Quality: Safe Use of Opioids Does Pt have an Active Cancer Diagnosis on the Problem List?: No Quality: Stroke Does the patient have a stroke diagnosis?: No Physical Exam Vital Signs: Vital Signs: Last Vital Signs Temp 97.9 F 06/10/24 07:29 Pulse 61 06/10/24 07:29 Resp 16 06/10/24 07:29 BP 135/78 06/10/24 07:29 Pulse Ox 99 06/10/24 07:29 O2 Del Method Room Air 06/10/24 07:29 BMI result Body Mass Index 26.6 DS: Data Data Completed and Pending Labs on day of discharge: Laboratory Results - last 24 hr 06/10/24 07:33 POC Glucose 113 Discharge Plan Discharge Patient Disposition: Home, Self-Care Referrals: Physician,Unknown J [Primary Care Provider] - 1 Week Discharge Medications: New oxycodone 5 mg tablet 5 mg PO Q6H PRN (Reason: pain (scale score 7-10)) Qty: 30 0RF Rx Instructions: Partial Fill upon patient request. Continued gabapentin 300 mg capsule 300 mg PO TID Qty: 90 11RF cyclobenzaprine 10 mg tablet 10 mg PO BID PRN (Reason: muscle spasm) atorvastatin 20 mg tablet 20 mg PO DAILY famotidine 40 mg tablet 40 mg PO DAILY PRN (Reason: Gastric Reflux) methocarbamol 750 mg tablet 750 mg PO Q6H PRN (Reason: Pain) lidocaine 5 % adhesive patch,medicated 1 patch topical Q3D metformin 1,000 mg Tablet 1,000 mg PO BID docusate sodium [Colace] 100 mg capsule 100 mg PO BID Qty: 20 0RF Held methylprednisolone 4 mg tablets,dose pack 4 mg PO DAILY Qty: 21 0RF Hold Instructions: Resume on 06/10/24. Not currently taking Rx Instructions: take as directed on package oxycodone 5 mg tablet 5 mg PO Q4H PRN (Reason: pain) Qty: 20 0RF Hold Instructions: Resume on 06/10/24. Patient reports being out of this medication, will order new Rx Rx Instructions: Partial Fill upon patient request. aspirin 81 mg tablet,delayed release (DR/EC) 81 mg PO DAILY Hold Instructions: Resume on 06/15/24. hold for 5 days postoperative methylprednisolone 4 mg tablets,dose pack See Rx Instructions PO PER PKG DIR Qty: 21 0RF Hold Instructions: Resume on 06/10/24. Not currently taking Rx Instructions: PO PER PKG DIR for 6 days Discharge Orders: Discharge Order (Routine); Ordered 06/10/24 Ordered By: Tal Bhat Diet: Advance to usual diet Activity on Discharge: As tolerated Activity Restrictions/Additional Instructions: After your spinal surgery we ask you to observe the following restrictions/guidelines: Activity: It is normal to feel some discomfort as you increase your activity, but that will improve with time. We ask you avoid heavy lifting or acitivities that cause pain. As a general rule, 8lbs is a safe limit for lifting right after surgery. Walk as much as you feel comfortable but not to exhaustion. You will feel extra tired the first few days after surgery. Stay well hydrated. It is OK to walk up and down stairs You may return to driving when you are off narcotics (such as vicodin, oxycodone, dilaudid, etc), and you are back to normal functional capacity. If you have any concerns please check with office before driving. Return to work is specific to each patient and each surgery, so please speak with your doctor/PA at first follow up. Please bring paperwork such as FMLA at that time if you need it filled out. Medications: Please resume your aspirin 5 days after surgery You may take NSAIDs tomorrow We recommend you take 1,000mg Tylenol every 8 hours for the first few weeks after surgery, if you do not have any liver issues and can tolerate this medication. Do not exceed 4,000mg daily. We will give you a short supply of narcotics after surgery (usually one weeks worth). If you need more please call the office but do not use more than prescribed. You will need to give our office 48 hours notice if you need narcotics refilled and we do not fill narcotics on weekends or evenings. If you are on a narcotic, it is a good idea to take a stool softener such as colace or senna to avoid constipation If you take blood thinner such as aspirin, Plavix, Coumadin, Effient, Eliquis etc for conditions such as Afib, DVT, Pulmonary embolus, coronary disease, stents etc please speak with your surgeon about specific details as to when you can resume these medications. You can resume NSAIDs on post op day 1 (eg: Motrin, Naproxen, etc). Follow up: Please call the office, , after surgery to arrange a 3 week follow up for wound check. Wound Care: You may remove your dressing on the first day after surgery. ?You may ?leave open to air. Please do not remove the steri strips underneath. they will fall off on their own in one week. IT IS NORMAL FOR THE WOUND TO OOZE OR BE BLOODY FOR A FEW DAYS AFTER SURGERY. ?IF THIS HAPPENS JUST PLACE NEW DRESSING OVER IT TO AVOID STAINING CLOTHES. You may shower on post op day # 1 We ask that you do not let the water soak the wound. If it does get wet, just towel dry lightly. Please do not scrub your incision or place any type of chemical/ointment on the wound. No tub baths, pools or jacuzzis for one month. If you have any leaking or redness from your wound, or fevers, please call the office. Print Language: [place] Leonean
--- NOTE | 2024-06-10 11:11 | P.OP_ITS ---
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 Today's following the diskectomy he developed recurrent severe right leg pain. A repeat MRI is suspi cious for a recurrent disc herniation compressing the right L5 nerve root. The patient was offered a redo lumbar microdiskectomy to decompress the nerve root. The procedure complications were explained. The patient was consented. The patient was brought to the operating room and endotracheally intubated. The patient was turned in a prone position on the Mariano frame. Prepping and draping was done followed by time-out. The previous mid lumbar incision was opened and the laminotomy defect was seen. The L4 laminotomy was extended cranially. Flavum ligament was resected and the underlying dura and exiting L5 nerve root was seen. I was able to find a previous diskectomy defect and with a nerve root I went under the L5 nerve root and was able to retrieve several fragments. Then I continued with removal from fragments from the intradiscal area and from under the thecal sac. This resulted in an excellent decompression of the L5 nerve root. Hemostasis was done. The microscope was removed. Marcaine was injected intramuscularly.The incision was closed in two layers. Steri-Strips used to approximate the incision. An op-site were taken there was used to cover the incision. All sponge and needle counts were correct. Patient was extubated and transported in stable condition to recovery room. this procedure was done with the aid of a physician clinical assistant professor who performed the initial exposure until the microscope was brought in and performed the closure of the incision. Anesthesia: General Blood loss: 10 mL Complications: None Specimen: None Surgical time: 50 minutes Disposition: Discharge home
[2024-06-10] MEDS: fentaNYL citrate/PF 100 MCG/2 ML VIAL 50 MCG IVPUSH (12:30)
== END 2024-06-10 14:16 | disposition home or self-care (01) ==
PROVIDERS: Visit Provider Neurological Surgery
PROC: (CPT 63042; principal; 2024-06-10 08:40)
DX: M51.26 Other intervertebral disc displacement, lumbar region (principal); M79.604 Pain in right leg; R26.89 Other abnormalities of gait and mobility; Z99.89 Dependence on other enabling machines and devices; Z98.890 Other specified postprocedural states
CPT/HCPCS: 63042; 82947; J0131; J0690; J1100; J2003; J2250; J2405; J2704; J3010

== ENCOUNTER → 2024-06-10 06:44 | Outpatient (BNV) | payer MEDICAID, SELFPAY | PROVIDERS: Visit Provider Neurological Surgery | DX: M51.26 Other intervertebral disc displacement, lumbar region (principal) | CPT/HCPCS: 63042; 99499 ==

== ENCOUNTER 2024-07-01 13:31 | Outpatient (AMB) | payer MEDICAID, SELFPAY ==
--- NOTE | 2024-07-01 13:32 | HO.SPINEOV ---
Intake Visit Reasons: 1st post op Intake Note: Mr. Scott is here today for his 1st post op. Adolescent Medicine Specialist Required: No Allergies No Known Allergies Allergy (Verified 07/01/24 13:36) Assessment & Plan Assessment & Plan (1) S/P lumbar microdiscectomy: Code(s): Z98.890 - Other specified postprocedural states Category: Surgical Plan Yony is a pleasant 58 year old male who comes in today for his 2nd postoperative visit. He reports that since his surgery he has been doing much better than he was after the previous surgery. He continues to take the oxycodone in the gabapentin in an effort to mitigate his pain. He reports the pace predominantly in his bilateral lower extremities, right worse than left. We discussed his surgery, and the implications of subsequent disc herniations. If he has recurrent of this issue he will likely need a TLIF at L4-5. No new neurological deficits. The patient ambulates well and rises from a seated position without difficulty. His posterior incision site appears closed and well healing. I would like to follow up with Yony again in 6 weeks for his 2nd postoperative visit. Tal Anderson MD,PhD [facility] Coding Level of Care Code Global (47627) Diagnoses S/P lumbar microdiscectomy Z98.890
== END 2024-07-01 13:54 | disposition home or self-care (01) ==
PROVIDERS: Visit Provider Physician Assistant
DX: Z98.890 Other specified postprocedural states (principal)
CPT/HCPCS: 99024

== ENCOUNTER → 2024-07-01 13:31 | Outpatient (BNVA) | payer MEDICAID, SELFPAY | PROVIDERS: Visit Provider Physician Assistant | DX: Z98.890 Other specified postprocedural states (principal) | CPT/HCPCS: 99212 ==

== ENCOUNTER 2024-08-10 09:08 | Outpatient (AMB) | payer MEDICAID, SELFPAY ==
--- NOTE | 2024-08-10 09:10 | A.SPINEOV_ITS ---
Intake Visit Reasons: 2nd post op Intake Note: Mr. Scott is here for his 2nd post op appointment. Rail Track Maintainer Required: No Allergies No Known Allergies Allergy (Verified 08/10/24 09:13) Assessment & Plan Assessment & Plan (1) S/P lumbar microdiscectomy: Code(s): Z98.890 - Other specified postprocedural states Category: Surgical Plan Yony comes in today for his 2nd postoperative visit after having recurrent right sided L4-5 microdiscectomy completed by our service on 06/10/25. He continues to have dull nagging persistent pain in his low back and in the backs of his lower extremities. Thankfully this has not been too bad comparatively to the shooting pain he had when he suffered from the recurrence. He has been utilizing ibuprofen 600 mg when needed. He states that this helps to mitigate his pain symptoms. He is no longer taking any narcotic or prescribed medications. 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 He requested a letter to remain out of work as he continues to heal. We discussed this. No new neurological deficits. The posterior incision site is closed and well healed. The patient ambulates well without an antalgic gait. Pleasant 58-year-old male who is suffering from a protracted postoperative healing course. I completed a letter for the patient to remain out of work for the next 2 months while he engages with physical therapy. I would like to see him back in the office after this is complete. Hopefully this helps him to strengthen himself a bit and relieve some of his pain. Tal Anderson MD,PhD [facility] Orders: Orders PT Evaluation and Treatment Today Z98.890 - Other specified postprocedural states Coding Level of Care Code Global (30688) Diagnoses S/P lumbar microdiscectomy Z98.890
== END 2024-08-10 09:36 | disposition home or self-care (01) ==
PROVIDERS: Visit Provider Physician Assistant
DX: Z98.890 Other specified postprocedural states (principal)
CPT/HCPCS: 99024

== ENCOUNTER → 2024-08-10 09:08 | Outpatient (BNVA) | payer MEDICAID, SELFPAY | PROVIDERS: Visit Provider Physician Assistant | DX: Z48.89 Encounter for other specified surgical aftercare (principal); Z98.890 Other specified postprocedural states | CPT/HCPCS: 99212 ==

== ENCOUNTER 2024-08-26 11:02 | Outpatient (RCR) | payer MEDICAID, SELFPAY ==
--- NOTE | 2024-08-19 15:05 | MHC.PT.EP ---
[facility] [place] Office [place] Office [place] Office [address] Maribel Mejia [address] [phone] F: [phone] F: [phone] F: [phone] F: [phone] Physical Therapy Plan of Care Date of Evaluation: 08/19/24 Date of Surgery: 06/10/25 Diagnosis: s/p lumbar L4-L5 microdiscectomy (DOS: 06/10/24 (repeat), initial 05/21/24) RS Assessment: Yony is a pleasant 58 y.o. male who is referred to PT by Tal Bhat PA-C of [facility] with Dx of s/p L4/L5 microdiscectomy (DOS: 06/10/24) Pt recovery is impacted by having needed a repeat surgery. He initially underwent microdiscectomy on L4/L5 on 05/21/24 and post surgery recovery was reporting more pain and radicular sxs so a repeat surgery was indicated. He is now presenting with continued pain and radiculopathy, needing core stabilization and LE strengthening with need to improve flexibility of LEs and nerves. 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 Patient will benefit from skilled PT to address aforementioned impairments and functional limitations to meet established goals, focused on improving functional mobility and returning to work activities and tasks. Frequency and Duration: The patient will be seen 2x/week for 4 weeks Short Term Goals: 2 weeks Patient demonstrates consistency and independence with HEP to self manage symptoms. Patient is able to demonstrate proper bed mobility with log roll side to side and proper lumbar positioning with supine to sit Moving Picture Producer Goals: 4 weeks Patient is able to demonstrate proper bend/squat to lift 15# crate floor to waist to mimic work tasks without familiar sxs. Patient presents with increased bilateral hip flexion strength 4+/5 to be able to ambulate reciprocally up 2 flights of stairs at home. Treatment Plan: Modalities to reduce pain, spasms and effusion. Manual therapy to restore motion and function. Therapeutic exercise to improve strength and flexibility. Neuromuscular re-education for posture and balance. Therapeutic activities to return to functional activities of daily living. Electronically signed by: Robyn Dupont, PT, DPT Please sign and return to therapist. Thank you for your referral.
--- NOTE | 2024-10-02 09:33 | MHC.PT.DC ---
[facility] [place] Office [place] Office [place] Office [address] Maribel Mejia [address] [phone] F: [phone] F: [phone] F: [phone] F: [phone] Physical Therapy Discharge Report Diagnosis: s/p lumbar L4-L5 microdiscectomy (DOS: 06/10/24 (repeat), initial 05/21/24) RS Date of Surgery: 06/10/25 Date of Evaluation: 08/19/24 Date of Discharge: 10/02/24 Treatments to Date: 3 Cancellations to Date: No Shows to Date: Discharge Status: Patient Elected to Stop Recommend MD Follow-up Discharge Summary: Yony only attended 2 sessions after initial PT evaluation (only 1 week duration). During PT sessions moist heat and soft tissue massage with and without instrument assist around area of scars, prone lying, and supine, seated and standing core stabilization exercises were performed with light band resistance. He was also instructed in and demonstrates back proper bending/squatting for lifting techniques to reduce back strain. He reported mild reduction in back pain but persisted with L LE numbness/tingling and antalgic gait. He fatigued with exercises and called to self discharge after visit on 08/26/24 as he reports having more pain after PT. I called and spoke with him after this encouraging to continue with PT and we can make modifications to program as he only attended for 1 week and it is not enough time to see significant change in symptoms. He did not want to return so I advised him to [facility] with [facility]. I messaged Tal Bhat PA-C, at [facility] to make him aware of his time in physical therapy and my concerns with his self discharge. pt continued w/ heat, soft tissue work, and core stab. He appeared visually fatigued and was often closing his eyes during session. Ended session early d/t fatigue. Encouraged pt to continue to be mindful about lifting/bending and compliance w/ HEP. pt verbalized understanding. Continue w/ core and pelvic stab. Electronically signed by: Robyn Dupont, PT, DPT Please sign and return to therapist. Thank you for your referral.
== END 2024-10-02 09:33 | disposition home or self-care (01) ==
LOC: HO.PT 11:02
PROVIDERS: PCP Nurse Practitioner Family; Visit Provider Physician Assistant
DX: Z98.890 Other specified postprocedural states (principal)
CPT/HCPCS: 97110; 97140; 97161; 97530; 97535

== ENCOUNTER 2024-09-30 14:54 | Outpatient (AMB) | payer MEDICAID, SELFPAY ==
--- NOTE | 2024-09-30 14:32 | A.SPINEOV_ITS ---
Intake Visit Reasons: Persistent LBP sx 06/10 Intake Note: Mr. Scott is here today c/o persistent low back pain. Surg. was on 06/10. Director Electronics Required: Yes Director Electronics Name: Tablet Allergies No Known Allergies Allergy (Verified 08/10/24 09:13) Assessment & Plan Assessment & Plan (1) S/P lumbar microdiscectomy: Code(s): Z98.890 - Other specified postprocedural states Category: Surgical Plan Yony comes in today for a postoperative follow up after having a right L4-5 lumbar microdiskectomy completed by Dr. Anderson in May for a recurrent disc herniation. We last saw him and recommended delaying return to work to engage with Physical Therapy. The plan was to have him follow up today after PT then return to work. He reports he was only able to complete about 4 sessions of physical therapy before he had the stopped going because it was painful for him. He also states that he was in little to no pain only taking about 400 mg of Motrin up until about 2 days ago when he was bending over felt a sharp pain in his low back and shooting pains down the back of both of his legs. These are somewhat conflicting reports. He seemed to go back and forth regarding his pain and his healing since surgery. I was not able to get a clear story regarding his postoperative pain and recovery despite multiple attempts. If he was doing well, I would expect him to be able to have been able to engage with physical therapy. Assuming he was not doing well in regards to his pain since we last saw him, it seems he is now doing much worse since 2 days ago. He is reporting intense pain since the incident 2 days ago and was asking for narcotic pain control. He denies numbness / tingling in the perineum and denies bowel / bladder incontinence. No new neurological deficits. The patient ambulates well and rises from a seated position with some difficulty. He has full strength in his bilateral lower extremities, but does elicit pain to iliopsoas testing. The posterior incision site is closed and well healed. (-) bilateral straight leg raise. Non antalgic, but slow gait. I would like Yony to follow up with Dr. Anderson in 2 weeks. In the meantime I will send him in an Rx for a prednisone dosepak and Gabapentin, in case he does have another recurrent disc herniation. I have an overall fairly low suspicion of this as the disc space should be scarred over by now given his surgery was on 06/10/24 but this cannot be completely ruled out. Tal Anderson MD,PhD [facility] Medications: New gabapentin 300 mg PO TID 30 caps 0RF nerve pain methylprednisolone PO PER PKG DIR for 6 days 21 ea 0RF Discontinued gabapentin Discontinued Reason: Doctor's Order 300 mg PO TID 90 caps 11RF Coding Level of Care Code Global (66628) Diagnoses S/P lumbar microdiscectomy Z98.890
--- OUTSIDE RECORDS SUMMARY | 2024-09-30 17:32 | XMS_ITS | Clinical Summary ---
Author Organization [facility] Address [address] [place] [address] Care Team Providers Care Scheduling Assistant Name Role Phone Garry Oliver Primary Care Provider [phone] Source Comments PLEASE NOTE, if this patient is a minor, it may be UNLAWFUL to discuss sensitive information that is contained in these records (such as FAMILY PLANNING, MENTAL HEALTH or SUBSTANCE ABUSE) with the minor patient's parent or other person without the patient's specific authorization.[facility] Allergies No known active allergies Medications carbamide peroxide (DEBROX) 6.5 % otic solutionIndicatio ns:Bilateral impacted cerumen Place 5 Drops into both ears nightly at bedtime 15 mL 3 Active cyclobenzaprine (FLEXERIL) 10 mg tabletIndications :Acute bilateral low back pain without sciatica Take 1 Tablet by mouth 3 (three) times daily as needed for muscle spasms 30 Tablet 1 3 Active ibuprofen 800 mg tabletIndications :Acute bilateral low back pain without sciatica TAKE 1 TABLET BY MOUTH THREE TIMES A DAY NEEDED FOR PAIN 60 Tablet 2 4 Active metFORMIN (GLUCOPHAGE) 1,000 mg tabletIndications :Diabetes mellitus without complication (HCC-CMS) Take 1 Tablet by mouth 2 (two) times daily with a meal 180 Tablet 1 4 Active atorvastatin (LIPITOR) 20 mg tabletIndications :Diabetes mellitus without complication (HCC-CMS) TAKE 1 TABLET BY MOUTH EVERY DAY 90 Tablet 4 Active lidocaine (LIDODERM) 5 % patchIndications: Acute bilateral low back pain without sciatica APPLY 1 PATCH TO THE AFFECTED AREA FOR A MAXIMUM OF 12 HOURS, FOLLOWED BY REMOVAL FOR 12 HOURS. 30 Patch 1 4 Active cyclobenzaprine (FLEXERIL) 10 mg tabletIndications :Low back pain, unspecified back pain laterality, unspecified chronicity, unspecified whether sciatica present Take 1 Tablet by mouth 2 (two) times daily as needed for muscle spasms 30 Tablet 1 4 Active famotidine (PEPCID) 40 mg tabletIndications :Gastritis without bleeding, unspecified chronicity, unspecified gastritis type TAKE 1 TABLET BY MOUTH EVERY DAY 90 Tablet 1 4 Active aspirin [address] tabletIndications :Routine general medical examination at a health care facility TAKE 1 TABLET BY MOUTH EVERY DAY 90 Tablet 5 Active Active Problems Problem Noted Date Diagnosed Date Injury to penis 12/29/2023 Fracture of corpus cavernosum penis 12/26/2023 Diabetes mellitus without complication ([facility]) 08/30/2022 Colonoscopy refused 08/30/2022 Cortical age-related cataract of both eyes 10/13 Overview (10/13/2021): September 2021 note Hypermetropia of both eyes 07/04/2015 Presbyopia 07/04/2015 Tension type headache 05/06/2015 Overview (08/30/2022): Last Assessment & Plan: Counseled about coping mechanism, will cont with expectant management Low back pain 01/05/2015 Overview (08/30/2022): Last Assessment & Plan: Counseled. NSAIDs. Referral made Other fatigue 08/20/2012 Chest pain 07/17/2011 Overview (01/17/2021): Reports negative workup with stress test in [place] Resolved Problems Problem Noted Date Diagnosed Date Resolved Date Localized superficial swelling, mass, or lump 08/20/19 13 01/17/2021 Immunizations Name Administration Dates Next Due PNEUMOCOCCAL POLYSACCHARIDE PPV23 12/08/2018 Td (adult) unspecified 12/12/2006 Family History Medical History Relation Name Comments Diabetes Brother High Cholesterol Brother No Known Problems Daughter Heart attack Father at age 62 Diabetes Mother Diabetes Sister High Cholesterol Sister No Known Problems Son Relation Name Status Comments Brother Alive Daughter Father Mother Alive Sister Alive Son Social History Tobacco Use Types Packs/Day Years Used Date Smoking Tobacco: Never Smokeless Tobacco: Never Tobacco Cessation:Counseling Given: Not Answered Alcohol Use Standard Drinks/Week Comments Yes 0 (1 standard drink = 0.6 oz pur e alcohol) some times Social Connections Answer Date Recorded Connectedness 1 03/18/2024 Financial Resource Strain Answer Date R ecorded Financial Resource Strain 1 2023 Stress Answer Date Recorded Stress 1 03/18/2024 Physical Activity Answer Date Recorded Physical Activity 0 01/17/2021 Food Insecurity Answer Date Recorded Food 1 03/18/2024 Transportation Needs Answer Date Record ed Transportation 1 03/18/2024 Housing Stability Answer Date Recorded Housing 1 03/18/2024 Safety and Environment Answer Date Demetrius rded Safety 0 01/17/2021 Utilities Answer Date Recorded Utilities 1 03/18/2024 Employment Answer Date Recorded Employment 0 01/17/2021 Sex and Gender Information Value Date Recorded Sex Assigned at Male 01/18/2021 3:09 AM PDT Legal Sex Male 10:46 PM PDT Gender Identity Male 01/18/2021 3:09 AM PDT Sexual Orientation Straight 01/18/2021 3: 09 AM PDT Occupation Industry Job Start Date Job End Date not working due to covid Not on file Not on file Not on file Last Filed Vital Signs Vital Sign Reading Time Taken Comments Blood Pressure 142/81 03/18/2024 10:35 AM EDT Pulse 66 03/18/2024 10:35 AM EDT Temperature 36.7 ??C (98.1 ??F) 03/18/2024 1 0:35 AM EDT Respiratory Rate 16 03/18/2024 10:3 5 AM EDT Oxygen Saturation 98% 03/18/2024 10: 35 AM EDT Inhaled Oxygen Concentration - - Weight 77.1 kg (169 lb 14.4 oz) 024 10:35 AM EDT Height 167.6 cm (5' 6 ) 03/18/2024 10:3 5 AM EDT Body Mass Index 27.42 03/18/2024 10:35 AM EDT Plan of Treatment Health Maintenance Due Date Last Done Comments Imm-Hepatitis B (1 of 3 - 19 + 3-dose series) 12/29/1983 Imm-DTaP/Tdap/Td (1 - Tdap) 12/13/2006 12/12/2006 CT Colonography 2009 Colonoscopy 2009 Fecal DNA 2009 Flexible Sigmoidoscopy 2009 Imm-Zoster, Recombinant (1 of 2) 2014 Colorectal Cancer Screening 01/17/2023 Diabetes Foot Exam 01/17/2023 01/17/2022, 0 01/17/2022, 01/17/2021 FIT/gFOBT 01/17/2023 01/17/2022, 01/16/2021 Dental Examination 01/19/2023 01/17/2022 (M anaged by Outside Provider) Annual Preventive Care Visit 08/30/2023 08/30/2022, 01/17/2021 Diabetes Microalbumin (w/Creatinine) 09/06/2023 09/06/2022 Imm-Influenza (#1) 2024 Alcohol and Drug Screen 07/22/2024 03/18/20 24, 08/30/2022, 01/17/2022, Additional history exists Depression Annual Screen 07/22/2024 03/18/2024 Retinopathy Screening 10/14/2024 10/15/2023 , 10/03/2022, 01/17/2022 (Managed by Outside Provider) Lipid Screening 11/14/2024 11/15/2023, 08/22, 01/09/2022, Additional history exists Serum Creatinine 12/29/2024 12/30/2023, 01/2024, 12/26/2023, Additional history exists Hypertension Screening (#1) 03/18/2025 Tobacco Screening 03/18/2025 03/18/2024, 08/30/2022 Diabetes HbA1c 03/29/2025 09/26/2024, 04/2 12/2023, 09/06/2022, Additional history exists HIV Screening Completed 01/18/2021 Hepatitis C Screening Completed 01/18/2021 [id number] Discontinued Procedures Procedure Name Priority Date/Time Associated Diagnosis Comments HEMOGLOBIN GLYCOSYLATED A1C Routine 09/26/2024 8:31 AM EST Diabetes mellitus without complication (HCC-CMS) RFLX - REFLEXIVE URINE CULTURE Routine 09/26/2024 8:30 AM EST URINALYSIS, COMPLETE W/REFLEX TO CULTURE Routine 09/26/2024 8:30 AM EST Diabetes mellitus without complication (HCC-CMS) MICROALBUMIN, URINE, RANDOM (W/O CREAT) Routine 09/26/2024 8:30 AM EST Diabetes mellitus without complication (HCC-CMS) COMPREHENSIVE METABOLIC PANEL Routine 11/15/2023 4:07 PM EDT Diabetes mellitus without complication ([facility]) LIPID PANEL Routine 11/15/2023 4:07 PM EDT Diabetes mellitus without complication ([facility]) EYE EXAM 10/15/2023 3:00 AM EDT MICROALBUMIN/CREATININE RATIO, URINE, RANDOM Routine 09/06/2022 8:55 AM EST Immunization declined Diabetes mellitus without complication (HCC-CMS) Colonoscopy refused FECAL GLOBIN BY IMMUNOCHEMISTRY (FIT) Routine 01/17/2022 2:38 PM EDT Colon cancer screening HIV 1/2 AG & AB W/RFLX (4TH GEN) Routine 01/18/2021 10:27 AM EDT Examination, medical, general HEPATITIS C AB W/RFLX HCV RNA, QT, RT PCR Routine 01/18/2021 10:27 AM EDT Examination, medical, general from Last 3 Months or Most Recently Relevant to Health Maintenance Results * (ABNORMAL) HEMOGLOBIN GLYCOSYLATED A1C (09/26/2024 8:31 AM EST) HEMOGLOBIN A1C 6.4(H) <5.7 % of total Hgb [facility] Comment: For someone without known diabetes, a hemoglobin A1c value between 5.7% and 6.4% is consistent with prediabetes and should be confirmed with a follow-up test. For someone with known diabetes, a value <7% indicates that their diabetes is well controlled. A1c targets should be individualized based on duration of diabetes, age, comorbid conditions, and other considerations. This assay result is consistent with an increased risk of diabetes. Currently, no consensus exists regarding use of hemoglobin A1c for diagnosis of diabetes for children. Blood Blood / Unknown 09/26/2024 8 :31 AM EST 09/26/2024 8:32 AM EST [employer]arrative [employer] - 09/27/2024 5:55 AM EDT FASTING:YES Garry [facility] LAB - BLOOD DRAW Final Re sult [employer] [facility] [address] [address], [place] [facility] [address] [place] [address] * URINALYSIS, COMPLETE W/REFLEX TO CULTURE (09/26/2024 8:30 AM EST) COLOR YELLOW YELLOW [facility] APPEARANCE CLEAR CLEAR [facility] SPECIFIC GRAVITY 1.018 1.001 - 1.035 [facility] URINE PH 6.0 5.0 - 8.0 [facility] GLUCOSE NEGATIVE NEGATIVE [facility] BILIRUBIN NEGATIVE NEGATIVE [facility] KETONES NEGATIVE NEGATIVE [facility] OCCULT BLOOD NEGATIVE NEGATIVE [facility] URINE PROTEIN NEGATIVE NEGATIVE [facility] NITRITE NEGATIVE NEGATIVE [facility] LEUKOCYTE ESTERASE NEGATIVE NEGATIVE [facility] URINE LEUKOCYTES NONE SEEN < OR = 5 [facility] RBC NONE SEEN < OR = 2 [facility] SQUAMOUS EPITHELIAL CELLS NONE SEEN < OR = 5 [facility] BACTERIA NONE SEEN NONE SEEN [facility] HYALINE CAST NONE SEEN NONE SEEN [facility] SEE NOTE See Below [facility] Comment: This urine was analyzed for the presence of WBC, RBC, bacteria, casts, and other formed elements. Only those elements seen were reported. Urine Urine specimen / Unknown 09/26/2024 8:30 AM EST 09/26/2024 8:31 AM EST [employer] - 09/28/2024 4:17 PM EDT SPLIT 11/15/2023 FROM [id number] Garry Benito [facility] LAB - NO BLOOD DRAW Edite d Result - Final Performing Organization Address [facility] Co de Phone Number [employer] [address] [address], [facility] [address] [address] * MICROALBUMIN, URINE, RANDOM (W/O CREAT) (09/26/2024 8:30 AM EST) MICROALBUMIN 0.8 mg/dL [employer] Comment: Reference Range Not established SEE NOTE See Below [employer] Comment: The ADA defines abnormalities in albumin excretion as follows: Albuminuria Category ? Result (mg/g creatinine) Normal to Mildly increased ?<30 Moderately increased ?30-299 Severely increased ?> OR = 300 The ADA recommends that at least two of three specimens collected within a 3-6 month period be abnormal before considering a patient to be within a diagnostic category. Urine Urine specimen / Unknown 09/26/2024 8:30 AM EST 09/26/2024 8:31 AM EST Narrative [employer] - 09/28/2024 4:17 PM EDT SPLIT 11/15/2023 FROM [id number] Garry Benito [facility] - NO BLOOD DRAW Final Result Performing Organization Address City/[facility]/ZIP Co de Phone Number [facility] [address] [address], [facility] [address] [address] * RFLX - REFLEXIVE URINE CULTURE (09/26/2024 8:30 AM EST) REFLEXIVE URINE CULTURE See Below [employer] Comment:NO CULTURE INDICATED 09/26/2024 8:30 AM EST 09/26/2024 8:31 AM EST Narrative [employer] - 09/28/2024 4:17 PM EDT SPLIT 11/15/2023 FROM [id number] us Garry Oliver [facility] - NO BLOOD DRAW Edite d Result - Final Performing Organization Address [facility]/ZIP Co de Phone Number [facility] [address] [address], [facility] [address] [place] [address] * (ABNORMAL) LIPID PANEL (11/15/2023 4:07 PM EDT) [facility] CHOLESTEROL, TOTAL 126 <200 mg/dL [facility] HDL CHOLESTEROL 38(L) > OR = 40 mg/dL [facility] TRIGLYCERIDES 199(H) <150 mg/dL [facility] LDL-CHOLESTEROL 61 99 mg/dL (calc) [facility] Comment: Reference range: <100 Desirable range <100 mg/dL for primary prevention; ?? <70 mg/dL for patients with CHD or diabetic patients with > or = 2 CHD risk factors. LDL-C is now calculated using the Aris-Gerson calculation, which is a validated novel method providing better accuracy than the Friedewald equation in the estimation of LDL-C. Aris SS et al. DEANNA. 2013;310(19): 6459-4489 (http://education.Match/faq/BAZ256) CHOL/HDLC RATIO 3.3 <5.0 (calc) [facility] NON-HDL CHOLESTEROL 88 <130 mg/dL (calc) [facility] Comment: For patients with diabetes plus 1 major ASCVD risk factor, treating to a non-HDL-C goal of <100 mg/dL (LDL-C of <70 mg/dL) is considered a therapeutic option. Blood Blood / Unknown 11/15/2023 4 :07 PM EDT 11/15/2023 4:08 PM EDT Narrative [facility] - 11/16/2023 8:26 AM EDT PATIENT UNABLE TO VOID; ADVISED TO RETURN FOR COLLECTION. us Garry [facility] LAB - BLOOD DRAW Final Re sult [employer] [address] [address], [facility] [address] [place] [address] * (ABNORMAL) COMPREHENSIVE METABOLIC PANEL (11/15/2023 4:07 PM EDT) GLUCOSE 178(H) 65 - 99 mg/dL [facility] Comment: ?Fasting reference interval For someone without known diabetes, a glucose value >125 mg/dL indicates that they may have diabetes and this should be confirmed with a follow-up test. UREA NITROGEN (BUN) 14 7 - 25 mg/dL [facility] CREATININE (blood) 1.02 0.70 - 1.30 mg/dL [facility] EGFR 85 > OR = 60 mL/min/1. 73m2 [facility] BUN/CREATININE RATIO SEE NOTE: [facility] Comment: ?? Not Reported: BUN and Creatinine are within ?? reference range. ? SODIUM 141 135 - 146 mmol/L [facility] POTASSIUM 4.9 3.5 - 5.3 mmol/L [facility] CHLORIDE 106 98 - 110 mmol/L [facility] CARBON DIOXIDE 29 20 - 32 mmol/L [facility] CALCIUM 9.3 8.6 - 10.3 mg/dL [facility] PROTEIN, TOTAL 6.3 6.1 - 8.1 g/dL [facility] ALBUMIN 4.3 3.6 - 5.1 g/dL [facility] GLOBULIN 2.0 1.9 - 3.7 g/dL (calc) [facility] ALBUMIN/GLOBULI N RATIO 2.2 1.0 - 2.5 (calc) [facility] BILIRUBIN, TOTAL 0.6 0.2 - 1.2 mg/dL [facility] ALKALINE PHOSPHATASE 78 35 - 144 U/L [facility] AST 19 10 - 35 U/L [facility] ALT 27 9 - 46 U/L [facility] Blood Blood / Unknown 11/15/2023 4 :07 PM EDT 11/15/2023 4:08 PM EDT Narrative [facility] - 11/16/2023 8:26 AM EDT PATIENT UNABLE TO VOID; ADVISED TO RETURN FOR COLLECTION. Garry Oliver SERVICE SUPPORT REPRESENTATIVE LAB - BLOOD DRAW Edited R calvinult - Final Performing Organization Address City/[facility]/ZIP Co de Phone Number [facility] [place] [facility] [address] [address], [place] [facility] [address] [address] * EYE EXAM (10/15/2023 3:00 AM EDT) 10/15/2023 3:00 AM EDT Jayson Loza MD OTHER Edited Resul t - Final * MICROALBUMIN/CREATININE RATIO, URINE, RANDOM (09/06/2022 8:55 AM EST) CREATININE, RANDOM URINE 45 20 - 320 mg/dL [facility] MICROALBUMIN <0.2 mg/dL [facility] Comment: Reference Range Not established MICROALBUMIN/CREA TININE RATIO, RANDOM URINE NOTE <30 [facility] Comment: NOTE: The urine albumin value is less than 0.2 mg/dL therefore we are unable to calculate excretion and/or creatinine ratio. The ADA defines abnormalities in albumin excretion as follows: Albuminuria Category ?Result (mcg/mg creatinine) Normal to Mildly increased ?? <30 Moderately increased ? 30-299 Severely increased ? > OR = 300 The ADA recommends that at least two of three specimens collected within a 3-6 month period be abnormal before considering a patient to be within a diagnostic category. Urine Urine specimen / Unknown 09/06/2022 8:55 AM EST 09/06/2022 8:56 AM EST Brenda Davis SERVICE SUPPORT REPRESENTATIVE-C LAB - NO BLOOD DRAW Chante l Result Performing Organization Address [facility]/ZIP Co de Phone Number [facility] [address] [address], [employer] [address] ([address]) [place] [address] * FECAL GLOBIN BY IMMUNOCHEMISTRY (FIT) (01/17/2022 2:38 PM EDT) [facility] FECAL GLOBIN BY IMMUNOCHEMISTRY See Note [facility] Comment: ??FECAL GLOBIN BY IMMUNOCHEMISTRY ?Micro Number: ?[id number] ??Test Status: ? Final ??Specimen Source: ?? Stool ??Specimen Quality: ??Adequate ??Fecal Globin: ?Not Detected ??Comment: ? Test results may be invalid as no date of ? collection was provided. Specimens are stable ? for 14 days. Stool Stool specimen / Unknown 01/17/2022 2:38 PM EDT 01/18/2022 1:07 AM EDT Brenda Davis SERVICE SUPPORT REPRESENTATIVE-C LAB - NO BLOOD DRAW Edit ed Result - Final [facility] [address] [address], [facility] [address] [address] * HEPATITIS C AB W/RFLX HCV RNA, QT, RT PCR (01/18/2021 10:27 AM EDT) [facility] HEPATITIS C ANTIBODY NON-REACT GAGAN NON-REACT GAGAN [facility] SIGNAL TO CUT-OFF 0.00 <1.00 [facility] Comment: HCV antibody was non-reactive. There is no laboratory evidence of HCV infection. In most cases, no further action is required. However, if recent HCV exposure is suspected, a test for HCV RNA (test code 41241) is suggested. For additional information please refer to http://[employer]/faq/FUI40r4 (This link is being provided for informational/ educational purposes only.) Blood Blood / Unknown 01/18/2021 1 0:27 AM EDT 01/18/2021 10:28 AM EDT Garry Benito [facility] LAB - BLOOD DRAW Edited R ult - Final Performing Organization Address [facility] Co de Phone Number [facility] [address] [address], [facility] [address] [address] * HIV 1/2 AG & AB W/RFLX (4TH GEN) (01/18/2021 10:27 AM EDT) [facility] HIV AG/AB, 4TH GEN NON-REAC TIVE NON-REAC TIVE [facility] Comment: HIV-1 antigen and HIV-1/HIV-2 antibodies were not detected. There is no laboratory evidence of HIV infection. PLEASE NOTE: This information has been disclosed to you from records whose confidentiality may be protected by state law. ??If your state requires such protection, then the state law prohibits you from making any further disclosure of the information without the specific written consent of the person to whom it pertains, or as otherwise permitted by law. A general authorization for the release of medical or other information is NOT sufficient for this purpose. ?? For additional information please refer to http://education.[employer]/faq/NSV017 (This link is being provided for informational/ educational purposes only.) The performance of this assay has not been clinically validated in patients less than 2 years old. Blood Blood / Unknown 01/18/2021 1 0:27 AM EDT 01/18/2021 10:28 AM EDT Garry Oliver SERVICE SUPPORT REPRESENTATIVE LAB - BLOOD DRAW Edited R esult - Final [facility] [address] [address], [facility] [address],[facility] [address] from Last 3 Months or Most Recently Relevant to Health Maintenance Insurance [id number] Care Teams Scheduling Assistant Relationship Specialty Start Date End Date Garry Oliver FNP [address] [place] [address] PCP - General Family Medicine, INTERMEDIATE FRAME TENDER 11/09/20
--- OUTSIDE RECORDS SUMMARY | 2024-09-30 17:32 | XMS_ITS | Clinical Summary ---
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 Role Phone Unavailable Primary Care Provider Unavailabl e Social History Tobacco Use Types Packs/Day Years Used Date Smoking Tobacco: Never Assessed Sex and Gender Information Value Date Recorded Sex Assigned at Not on file Legal Sex Male 11:39 AM EST Gender Identity Not on file Sexual Orientation Not on file Plan of Treatment Health Maintenance Due Date Last Done Comments Diabetes: Annual Foot Exam 1974 Diabetes: Annual Retina Eye Exam 1974 Hepatitis B Vaccines (1 of 3 - 19+ 3-dose series) 12/29/1983 Zoster Vaccines (1 of 2) 2014 DTaP,Tdap,and Td Vaccines (2 - Td or Tdap) 12/12/2016 12/12/2006 Pneumococcal Vaccine: 50+ Years (2 of 2 - PCV) 12/09/2019 12/08/2018 HIV Screening 06/19/2022 Social Influencers of Health Screening 06/19/2022 Colorectal Cancer Screening: Stool Based Tests (FOBT/FIT) 01/17/2023 01/17/2022 COVID-19 Vaccine ( season) 2024 Influenza Vaccine (#1) 2024 Diabetes: Annual Urine Albumin-Creatinine Ratio (uACR) 06/09/2024 09/06/2022 Diabetes: Blood Sugar Control Test (HGBA1C) 06/09/2024 11/15/2023, 01/05/2015 Diabetes: Annual GFR (Glomerular Filtration Rate) 11/14/2024 11/15/2023 Depression Screening 03/18/2025 03/18/2024 Cholesterol Screening (Lipid Panel) 11/14/2028 11/15/2023, 11/15/2023, 09/06/2022, Additional history exists RSV Immunization Patients 60+ Years Old (1 - 1-dose 75+ series) 12/29/2039 Pneumococcal Vaccine: Pediatrics (0 to 5 Years) and At-Risk Patients (6 to 64 Years) Aged Out 12/08/2018 No longer eligible based on patient's age to complete this topic Hepatitis C Screening Completed 01/18/2021 HIB Vaccines Aged Out No longer eligi ble based on patient's age to complete this topic HPV Vaccines Aged Out No longer eligi ble based on patient's age to complete this topic Hepatitis A Vaccines Aged Out No long er eligible based on patient's age to complete this topic IPV Vaccines Aged Out No longer eligi ble based on patient's age to complete this topic MMR Vaccines Aged Out No longer eligi ble based on patient's age to complete this topic Meningococcal ACWY Vaccine Aged Out N o longer eligible based on patient's age to complete this topic Meningococcal B Vacine Aged Out No lo nger eligible based on patient's age to complete this topic RSV Immunization Patients Under 20 months Aged Out No longer eligible based on patient's age to complete this topic Varicella Vaccines Aged Out No longer eligible based on patient's age to complete this topic
== END 2024-09-30 15:25 | disposition home or self-care (01) ==
LOC: HO.HNS 14:55
PROVIDERS: PCP Nurse Practitioner Family; Visit Provider Physician Assistant
DX: Z98.890 Other specified postprocedural states (principal)
CPT/HCPCS: 99214

== ENCOUNTER → 2024-09-30 14:54 | Outpatient (BNVA) | payer MEDICAID, SELFPAY | PROVIDERS: PCP Nurse Practitioner Family; Visit Provider Physician Assistant | DX: Z98.890 Other specified postprocedural states (principal) | CPT/HCPCS: 99212 ==

== ENCOUNTER 2024-10-14 14:28 | Outpatient (AMB) | payer MEDICAID, SELFPAY ==
--- NOTE | 2024-10-14 14:31 | A.SPINEOV_ITS ---
Intake Visit Reasons: 2 weeks f/up/recurring pain after surgery Intake Note: Mr. Scott is here for a 2 week F/u recurring pain after surgery. Percussion Teacher Required: Yes Percussion Teacher Services: Percussion Teacher Present Percussion Teacher Name: Serena Vargas Allergies No Known Allergies Allergy (Verified 10/14/24 14:32) Assessment & Plan Assessment & Plan (1) S/P lumbar microdiscectomy: Code(s): Z98.890 - Other specified postprocedural states Category: Surgical Plan Dear colleague, On 10/14/2024, I saw for follow-up Yony Sctot. He is status post lumbar microdiskectomy L4-5 x2. The last surgery was in May 2024. He continues to complain of bilateral radiculopathy, left more than right. Sitting and laying down is comfortable but as soon as he starts walking or standing the pain radiates down both legs. He unfortunately lost his job in the [employer] business as he could not do the job requirements. The pain is severe. On exam, straight leg raise produces pain across the lower spine. No radiation down his leg. Motor exam and sensory exam are intact. He ambulates with an antalgic gait. This patient continues to suffer from radicular symptoms despite 2 lumbar microdiskectomies. I would like to repeat the MRI of the lumbar spine to see if there is a recurrent disc herniation again. I will follow-up after the MRIs done. I spent 20 minutes in his consult for history and discussing plan of care. Daniel Anderson MD, PhD [facility] Trained Neurosurgeon Director, [facility] Orders: Orders MR lumbar spine wo/w con Today Z98.890 - Other specified postprocedural states Coding Level of Care Code Est Pt Level 3 (34531) Diagnoses S/P lumbar microdiscectomy Z98.890
--- OUTSIDE RECORDS SUMMARY | 2024-10-14 17:23 | XMS_ITS | Clinical Summary ---
Author Organization [facility] Address [address] [place] [address] Care Team Providers Care Sdet Name Role Phone Garry Oliver Primary Care Provider [phone] Source Comments PLEASE NOTE, if this patient is a minor, it may be UNLAWFUL to discuss sensitive information that is contained in these records (such as FAMILY PLANNING, MENTAL HEALTH or SUBSTANCE ABUSE) with the minor patient's parent or other person without the patient's specific authorization.[facility] Allergies No known active allergies Medications carbamide peroxide (DEBROX) 6.5 % otic solutionIndicati ons:Bilateral impacted cerumen Place 5 Drops into both ears nightly at bedtime 15 mL 08/30/19 23 Active cyclobenzaprine (FLEXERIL) 10 mg tabletIndication s:Acute bilateral low back pain without sciatica Take 1 Tablet by mouth 3 (three) times daily as needed for muscle spasms 30 Tablet 1 07/17/20 23 Active ibuprofen 800 mg tabletIndication s:Acute bilateral low back pain without sciatica TAKE 1 TABLET BY MOUTH THREE TIMES A DAY NEEDED FOR PAIN 60 Tablet 2 11/05/19 24 Active metFORMIN (GLUCOPHAGE) 1,000 mg tabletIndication s:Diabetes mellitus without complication ([facility]) Take 1 Tablet by mouth 2 (two) times daily with a meal 180 Tablet 1 11/19/19 24 Active lidocaine (LIDODERM) 5 % patchIndications :Acute bilateral low back pain without sciatica APPLY 1 PATCH TO THE AFFECTED AREA FOR A MAXIMUM OF 12 HOURS, FOLLOWED BY REMOVAL FOR 12 HOURS. 30 Patch 1 03/01/20 24 Active cyclobenzaprine (FLEXERIL) 10 mg tabletIndication s:Low back pain, unspecified back pain laterality, unspecified chronicity, unspecified whether sciatica present Take 1 Tablet by mouth 2 (two) times daily as needed for muscle spasms 30 Tablet 1 03/18/20 24 Active famotidine (PEPCID) 40 mg tabletIndication s:Gastritis without bleeding, unspecified chronicity, unspecified gastritis type TAKE 1 TABLET BY MOUTH EVERY DAY 90 Tablet 1 04/11/20 [address] tabletIndication s:Routine general medical examination at a health care facility TAKE 1 TABLET BY MOUTH EVERY DAY 90 Tablet 07/30/19 25 Active atorvastatin (LIPITOR) 20 mg tabletIndication s:Diabetes mellitus without complication ([facility]) TAKE 1 TABLET BY MOUTH EVERY DAY 90 Tablet 10/03/19 25 Active atorvastatin (LIPITOR) 20 mg tabletIndication s:Diabetes mellitus without complication ([facility]) TAKE 1 TABLET BY MOUTH EVERY DAY 90 Tablet 03/01/20 24 025 Discontinued Active Problems Problem Noted Date Diagnosed Date Injury to penis 12/29/2023 Fracture of corpus cavernosum penis 12/26/2023 Diabetes mellitus without complication (HCC-CMS) 08/30/2022 Colonoscopy refused 08/30/2022 Cortical age-related cataract [...] Reports negative workup with stress test in [place] Resolved Problems Problem Noted Date Diagnosed Date Resolved Date Localized superficial swelling, mass, or lump 08/20/19 13 01/17/2021 Immunizations Immunization Administration Dates Next Due PNEUMOCOCCAL POLYSACCHARIDE PPV23 [...] 03/18/2024 10:35 AM EDT Plan of Treatment Upcoming Encounters Date Type Department Care Team (Late st Contact Info) Description 12/15/2024 10:40 AM EDT [facility] [address] [place] [address] Garry Oliver FNP [address] [place] [address] Health Maintenance Due Date Last Done Comments [...] Annual Preventive Care Visit 08/30/2023 08/30/2022, 01/17/2021 Urine Albumin Creatinine Rat io Screening 09/06/2023 09/06/2022 Imm-Influenza (#1) 2024 Alcohol and Drug Screen 07/22/2024 03/18/20, 08/30/2022, 01/17/2022, Additional history exists Depression Annual Screen 07/22/2024 03/18/2024 Retinopathy Screening 10/14/2024 10/08/2024 , 10/15/2023, 10/03/2022, Additional history exists Lipid Screening 11/14/2024 11/15/2023, 08/22, 01/09/2022, Additional history exists Serum Creatinine 12/29/2024 12/30/2023, 01/2024, 12/26/2023, Additional history exists Hypertension Screening (#1) 03/18/2025 Tobacco Screening 03/18/2025 03/18/2024, 08/30/2022 Diabetes HbA1c 03/29/2025 09/26/2024, 04/2 12/2023, 09/06/2022, Additional history exists HIV Screening Completed 01/18/2021 Hepatitis C Screening Completed 01/18/2021 [id number] Discontinued Procedures Procedure Name Priority Date/Time Associated Diagnosis Comments EYE EXAM 10/08/2024 3:00 AM EDT HEMOGLOBIN GLYCOSYLATED A1C Routine 09/26/2024 8:31 AM [...] 4:07 PM EDT Diabetes mellitus without complication (HCC-CMS) LIPID PANEL Routine 11/15/2023 4:07 PM EDT Diabetes mellitus without complication (HCC-CMS) MICROALBUMIN/CREATININE RATIO, URINE, RANDOM Routine 09/06/2022 8:55 [...] Recently Relevant to Health Maintenance Results * EYE EXAM (10/08/2024 3:00 AM EDT) 10/08/2024 3:00 AM EDT Garry Oliver CONTENT MANAGEMENT CONSULTANT OTHER Final Res ult * (ABNORMAL) HEMOGLOBIN GLYCOSYLATED A1C (09/26/2024 8:31 AM EST) HEMOGLOBIN A1C 6.4(H) <5.7 % of total Hgb [facility] ([facility]) Comment: For someone without known diabetes, a [...] AM EST 09/26/2024 8:32 AM EST Narrative [facility] - 09/27/2024 5:55 AM EDT FASTING:YES Garry Oliver [facility] LAB - BLOOD DRAW Final Re sult [facility] Hot[facility] [address] [place] [phone], [facility] ([facility]) [address] [place] [phone] * URINALYSIS, COMPLETE W/REFLEX TO CULTURE (09/26/2024 8:30 AM EST) COLOR YELLOW YELLOW [facility] [facility]) APPEARANCE CLEAR CLEAR [facility] ([facility]) SPECIFIC GRAVITY 1.018 1.001 - 1.035 [facility] [facility] ([facility]) URINE PH 6.0 5.0 - 8.0 [employer] [facility] GLUCOSE NEGATIVE NEGATIVE [employer] [facility] BILIRUBIN NEGATIVE NEGATIVE [employer] [facility] KETONES NEGATIVE NEGATIVE [employer] [facility] OCCULT BLOOD NEGATIVE NEGATIVE [facility] [facility] URINE PROTEIN NEGATIVE NEGATIVE [employer] [facility] NITRITE NEGATIVE NEGATIVE [employer] [facility] LEUKOCYTE ESTERASE NEGATIVE NEGATIVE [employer] [facility] URINE LEUKOCYTES NONE SEEN < OR = 5 [employer] [facility] RBC NONE SEEN < OR = 2 [employer] [facility] SQUAMOUS EPITHELIAL CELLS NONE SEEN < OR = 5 [employer] [facility] BACTERIA NONE SEEN NONE SEEN [employer] [facility] HYALINE CAST NONE SEEN NONE SEEN [employer] [facility] SEE NOTE See Below [employer] [facility] Comment: This urine was analyzed for the presence of WBC, RBC, bacteria, casts, and other formed elements. Only those elements seen were reported. Urine Urine specimen / Unknown 09/26/2024 8:30 AM EST 09/26/2024 8:31 AM EST Narrative [employer] [facility] - 09/28/2024 4:17 PM EDT SPLIT 11/15/2023 FROM [id number] Garry Oliver [facility] - NO BLOOD DRAW Edite d Result - Final [employer] [address] [address], [employer] [address] [address] * MICROALBUMIN, URINE, RANDOM (W/O CREAT) (09/26/2024 8:30 AM EST) MICROALBUMIN 0.8 mg/dL [employer] [facility] Comment: Reference Range Not established SEE NOTE See Below [employer] [facility] Comment: The ADA defines abnormalities in albumin [...] AM EST 09/26/2024 8:31 AM EST Narrative [employer] [facility] - 09/28/2024 4:17 PM EDT SPLIT 11/15/2023 FROM [id number] Garry Benito FNP LAB - NO BLOOD DRAW Final Result Performing Organization Address [facility] de Phone Number [employer] [address] [address], [employer] [address] [address] * RFLX - REFLEXIVE URINE CULTURE (09/26/2024 8:30 AM EST) REFLEXIVE URINE CULTURE See Below [employer] [facility] Comment:NO CULTURE INDICATED 09/26/2024 8:30 AM EST 09/26/2024 8:31 AM EST Narrative [employer] [facility] - 09/28/2024 4:17 PM EDT SPLIT 11/15/2023 FROM [id number] [facility] - NO BLOOD DRAW Edite d Result - Final Performing Organization Address [facility] de Phone Number [employer] [address] [address], [employer] [address] [address] * (ABNORMAL) LIPID PANEL (11/15/2023 4:07 PM EDT) CHOLESTEROL, TOTAL 126 <200 mg/dL [employer] [facility] HDL CHOLESTEROL 38(L) > OR = 40 mg/dL [employer] [facility] TRIGLYCERIDES 199(H) <150 mg/dL [employer] [facility] LDL-CHOLESTEROL 61 99 mg/dL (calc) [employer] [facility] Comment: Reference range: <100 Desirable range <100 mg/dL for primary prevention; ?? <70 mg/dL for patients with CHD or diabetic patients with > or = 2 CHD risk factors. LDL-C is now calculated using the Ariel calculation, which is a validated novel method providing better accuracy than the Friedewald equation in the estimation of LDL-C. Aris EVANGELISTA et al. DEANNA. 2013;310(19): 7364-5850 (http://education.Fanzy/faq/FFT144) CHOL/HDLC RATIO 3.3 <5.0 (calc) [facility] ([facility]) NON-HDL CHOLESTEROL 88 <130 mg/dL (calc) [facility] ([facility]) Comment: For patients with diabetes plus 1 major ASCVD risk factor, treating to a non-HDL-C goal of <100 mg/dL (LDL-C of <70 mg/dL) is considered a therapeutic option. Blood Blood / Unknown 11/15/2023 4 :07 PM EDT 11/15/2023 4:08 PM EDT Narrative [facility] - 11/16/2023 8:26 AM EDT PATIENT UNABLE TO VOID; ADVISED TO RETURN FOR COLLECTION. Garry Oliver CONTENT MANAGEMENT CONSULTANT LAB - BLOOD DRAW Final Re sult [facility] [address] [place] [phone], [facility] ([facility]) [address] [place] [phone] * (ABNORMAL) COMPREHENSIVE METABOLIC PANEL (11/15/2023 4:07 PM EDT) [facility] GLUCOSE 178(H) 65 - 99 mg/dL [facility] ([facility]) Comment: ?Fasting reference interval For someone without known diabetes, a glucose value >125 mg/dL indicates that they may have diabetes and this should be confirmed with a follow-up test. UREA NITROGEN (BUN) 14 7 - 25 mg/dL [facility] ([facility]) CREATININE (blood) 1.02 0.70 - 1.30 mg/dL [facility] ([facility]) EGFR 85 > OR = 60 mL/min/1. 73m2 [facility] ([facility]) BUN/CREATININE RATIO SEE NOTE: [facility] (SAM) Comment: ?? Not Reported: BUN and Creatinine are within ?? reference range. ? SODIUM 141 135 - 146 mmol/L [facility] ([facility]) POTASSIUM 4.9 3.5 - 5.3 mmol/L [facility] ([facility]) CHLORIDE 106 98 - 110 mmol/L [facility] ([facility]) CARBON DIOXIDE 29 20 - 32 mmol/L [facility] ([facility]) CALCIUM 9.3 8.6 - 10.3 mg/dL [employer] [facility] PROTEIN, TOTAL 6.3 6.1 - 8.1 g/dL [employer] [facility] ALBUMIN 4.3 3.6 - 5.1 g/dL [facility] ([facility]) GLOBULIN 2.0 1.9 - 3.7 g/dL (calc) [facility] [facility] ALBUMIN/GLOBULI N RATIO 2.2 1.0 - 2.5 (calc) [employer] [facility] BILIRUBIN, TOTAL 0.6 0.2 - 1.2 mg/dL [employer] [facility] ALKALINE PHOSPHATASE 78 35 - 144 U/L [employer] [facility] AST 19 10 - 35 U/L [employer] [facility] ALT 27 9 - 46 U/L [employer] [facility] Blood Blood / Unknown 11/15/2023 4 :07 PM EDT 11/15/2023 4:08 PM EDT Narrative [employer] [facility] - 11/16/2023 8:26 AM EDT PATIENT UNABLE TO VOID; ADVISED TO RETURN FOR COLLECTION. Garry Oliver [facility] LAB - BLOOD DRAW Edited R esult - Final [employer] [facility] [address] [address], [address] [employer] [facility] [address] [place] [address] * MICROALBUMIN/CREATININE RATIO, URINE, RANDOM (09/06/2022 8:55 AM EST) CREATININE, RANDOM URINE 45 20 - 320 mg/dL [employer] [facility] MICROALBUMIN <0.2 mg/dL [facility] Comment: Reference Range Not established MICROALBUMIN/CREA TININE RATIO, RANDOM URINE NOTE <30 [email or web address] Comment: NOTE: The urine albumin value is [...] AM EST 09/06/2022 8:56 AM EST Brenda Huynhbruce CONTENT MANAGEMENT CONSULTANT-C LAB - NO BLOOD DRAW Chante l Result Performing Organization Address [facility] Co de Phone Number [employer] [facility] [address] [address], [employer] [address]) [place] [address] * FECAL GLOBIN BY IMMUNOCHEMISTRY (FIT) (01/17/2022 2:38 PM EDT) [facility] FECAL GLOBIN BY IMMUNOCHEMISTRY See Note [facility] (SAM) Comment: ??FECAL GLOBIN BY IMMUNOCHEMISTRY ?Micro Number: ?[id number] ??Test Status: ? Final ??Specimen Source: ?? Stool ??Specimen Quality: ??Adequate ??Fecal Globin: ?Not Detected ??Comment: ? Test results may be invalid as no date of ? collection was provided. Specimens are stable ? for 14 days. Stool Stool specimen / Unknown 01/17/2022 2:38 PM EDT 01/18/2022 1:07 AM EDT Brenda Huynhbruce CONTENT MANAGEMENT CONSULTANT-C LAB - NO BLOOD DRAW Edit ed Result - Final Performing Organization Address [facility] de Phone Number [employer] [address] [address], [employer] [address] [address] * HEPATITIS C AB W/RFLX HCV RNA, QT, RT PCR (01/18/2021 10:27 AM EDT) HEPATITIS C ANTIBODY NON-REACT GAGAN NON-REACT GAGAN [facility] ([facility]) SIGNAL TO CUT-OFF 0.00 <1.00 [facility] ([facility]) Comment: HCV antibody was non-reactive. There is no laboratory evidence of HCV infection. In most cases, no further action is required. However, if recent HCV exposure is suspected, a test for HCV RNA (test code 52573) is suggested. For additional information please refer to http://Zambikes [place].ID8-Mobile/faq/DFG77p5 (This link is being provided for informational/ educational purposes only.) Blood Blood / Unknown 01/18/2021 1 0:27 AM EDT 01/18/2021 10:28 AM EDT Garry Oliver CONTENT MANAGEMENT CONSULTANT LAB - BLOOD DRAW Edited R esult - Final [employer] [facility] [address] [address], [address] [employer] [facility] [address] [address] * HIV 1/2 AG & AB W/RFLX (4TH GEN) (01/18/2021 10:27 AM EDT) Pathologist [facility] HIV AG/AB, 4TH GEN NON-REAC TIVE NON-REAC TIVE [address] [employer] [facility] Comment: HIV-1 antigen and HIV-1/HIV-2 antibodies [...] ?? For additional information please refer to http://Zambikes [place].ID8-Mobile/faq/OTC470 (This link is being provided for informational/ educational purposes only.) The performance of this assay has not been clinically validated in patients less than 2 years old. Blood Blood / Unknown 01/18/2021 1 0:27 AM EDT 01/18/2021 10:28 AM EDT Garry MARSH LAB - BLOOD DRAW Edited R esult - Final [facility] [address] [address], [facility] [address] [address] from Last 3 Months or Most Recently Relevant to Health Maintenance Insurance [facility] [employer] [facility] Care Teams Sdet Relationship Specialty Start Date End Date Garry Oliver FNP [address] [place] [address] PCP - General Family Medicine, VEHICLE CARE SPECIALIST 11/09/20
--- OUTSIDE RECORDS SUMMARY | 2024-10-14 17:23 | XMS_ITS | Clinical Summary ---
Author Organization [facility] ity Address [address] [place] [address] Care Team Providers Care Metal Or Wood Blocker Name Role Phone Unavailable Primary Care Provider [...]
== END 2024-10-14 14:54 | disposition home or self-care (01) ==
LOC: HO.HNS 14:29
PROVIDERS: PCP Nurse Practitioner Family; Visit Provider Neurological Surgery
DX: Z98.890 Other specified postprocedural states (principal)
CPT/HCPCS: 99213

== ENCOUNTER → 2024-10-14 14:28 | Outpatient (BNVA) | payer MEDICAID, SELFPAY | PROVIDERS: PCP Nurse Practitioner Family; Visit Provider Neurological Surgery | DX: M54.10 Radiculopathy, site unspecified (principal); Z98.890 Other specified postprocedural states | CPT/HCPCS: 99212 ==

== ENCOUNTER 2024-10-25 12:54 | Outpatient (REF) | payer MEDICAID, SELFPAY ==
--- NOTE | ~2024-10-25 | MR_ITS ---
EXAMINATION: MR LUMBAR SPINE WITHOUT AND WITH CONTRAST CLINICAL INFORMATION: Other specified postprocedural states. COMPARISON: June 09, 2024. TECHNIQUE: MRI of the lumbar spine was obtained using routine sequences with and without contrast. Intravenous contrast: Gadolinium based 6 mL without reported immediate complications. FINDINGS: Last rib-bearing vertebra labeled T12. There is an irregular hypointense T1 and hyperintense STIR heterogeneously enhancing signal abnormality within soft tissues at the surgical site, L4-5 level and more pronounced on the right side of the facet joint and right lateral epidural/subdural compartment of the central spinal canal. There is a focal hypointense T1 and hyperintense T2 STIR signal abnormality in the posterior aspect of the intervertebral disc L4-5 protruding centrally into the central spinal canal resulting in ventral indentation/volume loss of the thecal sac.. There is facet joint hypertrophy as well as ligamentum flavum producing the AP diameter of the central spinal canal. There is no other area of abnormal enhancement. There is multilevel disc desiccation from L2-3 to L5-S1. The alignment is normal. The conus medullaris ends at the pedicle of L1 with normal signal. T12-L1: No disc herniation. No neuroforamina stenosis. L1-2: No disc herniation. No neuroforamina stenosis. L2-3: Broad-based disc bulging. Facet joint and ligamentum flavum hypertrophy. Reduced AP diameter of the thecal sac and the neural foramina. L3-4: Broad-based disc bulging. Facet joint hypertrophy. Reduced AP diameter of the thecal sac and neuroforamina. L4-5: There is an irregular hypointense T1 and hyperintense STIR heterogeneously enhancing signal abnormality within soft tissues at the surgical site, L4-5 level and more pronounced on the right side of the facet joint and right lateral epidural/subdural compartment of the central spinal canal. There is a focal hypointense T1 and hyperintense T2 STIR signal abnormality in the posterior aspect of the intervertebral disc L4-5 protruding centrally into the central spinal canal resulting in ventral indentation/volume loss of the thecal sac.. There is facet joint hypertrophy as well as ligamentum flavum producing the AP diameter of the central spinal canal. L5-S1: Broad-based disc bulging. Facet joint hypertrophy. No compression upon neural elements. MR/MR lumbar spine wo/w con IMPRESSION: Acute inflammatory/inflammatory process posterior elements and right lateral epidural/subdural central canal, L4-5. Central broad-based disc herniation and spondylosis at L4-5 resulting in central spinal canal stenosis compressing the neural elements of the thecal sac and likely the exiting nerve roots. Electronically signed by: Junito Basilio MD 10/26/2024 01:54 PM EDT
--- OUTSIDE RECORDS SUMMARY | 2024-10-25 13:05 | XMS_ITS | Clinical Summary ---
Author Organization [facility] Address [address] [place] [address] Care Team Providers Care Gaming Cashier Name Role Phone Garry Oliver Primary Care Provider [phone] Source Comments PLEASE NOTE, if this patient [...] 1,000 mg tabletIndication s:Diabetes mellitus without complication ([facility]) Take 1 Tablet by mouth 2 (two) [...] spasms 30 Tablet 1 03/18/20 [address] tabletIndication s:Routine general medical examination at a health care facility TAKE 1 TABLET BY MOUTH EVERY DAY 90 Tablet 07/30/19 25 Active atorvastatin (LIPITOR) 20 mg tabletIndication s:Diabetes mellitus without complication ([facility]) TAKE 1 TABLET BY MOUTH EVERY DAY 90 Tablet 10/03/19 25 Active famotidine (PEPCID) 40 mg tabletIndication s:Gastritis without bleeding, unspecified chronicity, unspecified gastritis type TAKE 1 TABLET BY MOUTH EVERY DAY 90 Tablet 1 10/16/19 25 Active atorvastatin (LIPITOR) 20 mg tabletIndication s:Diabetes mellitus without complication ([facility]) TAKE 1 TABLET BY MOUTH EVERY DAY 90 Tablet 03/01/20 24 025 Discontinued famotidine (PEPCID) 40 mg tabletIndication s:Gastritis without bleeding, unspecified chronicity, unspecified gastritis type TAKE 1 TABLET BY MOUTH EVERY DAY 90 Tablet 1 04/11/20 24 025 Discontinued Active Problems Problem Noted Date Diagnosed Date Injury to penis 12/29/2023 Fracture of corpus cavernosum penis 12/26/2023 Diabetes mellitus without complication ([facility]) 08/30/2022 Colonoscopy refused 08/30/2022 Cortical age-related cataract [...] Reports negative workup with stress test in [place] Resolved Problems Problem Noted Date Diagnosed Date [...] Description 12/15/2024 10:40 AM EDT Office Visit [facility] [address] [place] [id number] Garry Oliver FNP [address] [place] [address] Health Maintenance Due Date Last Done Comments Anxiety Screening 1965 Imm-Hepatitis B (1 of 3 - 19 [...] history exists Depression Annual Screen 07/22/2024 03/18/2024 Lipid Screening 11/14/2024 11/15/2023, 08/22, 01/09/2022, Additional history exists Serum Creatinine 12/29/2024 12/30/2023, 01/2024, 12/26/2023, Additional history exists Hypertension Screening (#1) 03/18/2025 Tobacco Screening 03/18/2025 03/18/2024, 08/30/2022 Diabetes HbA1c 03/29/2025 09/26/2024, 04/2 12/2023, 09/06/2022, Additional history exists Retinopathy Screening 10/08/2025 10/08/2024 , 10/15/2023, 10/03/2022, Additional history exists HIV Screening Completed 01/18/2021 Hepatitis C Screening Completed 01/18/2021 [id number] Discontinued Procedures Procedure Name Priority Date/Time Associated Diagnosis Comments EYE EXAM 10/08/2024 3:00 AM EDT HEMOGLOBIN GLYCOSYLATED A1C Routine 09/26/2024 8:31 AM EST Diabetes mellitus without complication ([facility]) RFLX - REFLEXIVE URINE CULTURE Routine 09/26/2024 8:30 AM EST URINALYSIS, COMPLETE W/REFLEX TO CULTURE Routine 09/26/2024 8:30 AM EST Diabetes mellitus without complication ([facility]) MICROALBUMIN, URINE, RANDOM (W/O CREAT) Routine 09/26/2024 [...] 3:00 AM EDT) 10/08/2024 3:00 AM EDT us Garry MARCP OTHER Final Res ult * (ABNORMAL) HEMOGLOBIN GLYCOSYLATED A1C (09/26/2024 8:31 AM EST) HEMOGLOBIN A1C 6.4(H) <5.7 % of total Hgb [facility] Comment: For someone without known diabetes, a [...] AM EST 09/26/2024 8:32 AM EST Narrative [facility] - 09/27/2024 5:55 AM EDT FASTING:YES us Garry MARCP LAB - BLOOD DRAW Final Re sult [facility] [address] [place] [address], [employer] [address] [address] * URINALYSIS, COMPLETE W/REFLEX TO CULTURE (09/26/2024 8:30 AM EST) COLOR YELLOW YELLOW [facility] APPEARANCE CLEAR CLEAR [facility] SPECIFIC GRAVITY 1.018 1.001 - 1.035 [facility] URINE PH 6.0 5.0 - 8.0 [facility] GLUCOSE NEGATIVE NEGATIVE [facility] BILIRUBIN NEGATIVE NEGATIVE [facility] KETONES NEGATIVE NEGATIVE [facility] OCCULT BLOOD NEGATIVE NEGATIVE [facility] URINE PROTEIN NEGATIVE NEGATIVE [facility] NITRITE NEGATIVE NEGATIVE [facility] LEUKOCYTE ESTERASE NEGATIVE NEGATIVE [facility] URINE LEUKOCYTES NONE SEEN < OR = 5 [facility] RBC NONE SEEN < OR = 2 [facility] SQUAMOUS EPITHELIAL CELLS NONE SEEN < OR = 5 [facility] BACTERIA NONE SEEN NONE SEEN [facility] HYALINE CAST NONE SEEN NONE SEEN [facility] SEE NOTE See Below [facility] Comment: This urine was analyzed for the presence of WBC, RBC, bacteria, casts, and other formed elements. Only those elements seen were reported. Urine Urine specimen / Unknown 09/26/2024 8:30 AM EST 09/26/2024 8:31 AM EST Narrative [facility] - 09/28/2024 4:17 PM EDT SPLIT 11/15/2023 FROM [id number] Garry Oliver [facility] LAB - NO BLOOD DRAW Edite d Result - Final [facility] [address] [address], [facility] [address] [address] * MICROALBUMIN, URINE, RANDOM (W/O CREAT) (09/26/2024 8:30 AM EST) MICROALBUMIN 0.8 mg/dL [facility] Comment: Reference Range Not established SEE NOTE See Below [facility] Comment: The ADA defines abnormalities in albumin [...] AM EST 09/26/2024 8:31 AM EST Narrative [facility] - 09/28/2024 4:17 PM EDT SPLIT 11/15/2023 FROM [id number] [facility] FNP LAB - NO BLOOD DRAW Final Result Performing Organization Address [place] de Phone Number [facility] [address] [address], [facility] [address] [address] * RFLX - REFLEXIVE URINE CULTURE (09/26/2024 8:30 AM EST) REFLEXIVE URINE CULTURE See Below [facility] Comment:NO CULTURE INDICATED 09/26/2024 8:30 AM EST 09/26/2024 8:31 AM EST Narrative [facility] - 09/28/2024 4:17 PM EDT SPLIT 11/15/2023 [facility] [id number] [facility] - NO BLOOD DRAW Edite d Result - Final Performing Organization Address [place] de Phone Number [facility] [address] [address], [facility] [address] [address] * (ABNORMAL) LIPID PANEL (11/15/2023 4:07 PM EDT) CHOLESTEROL, TOTAL 126 <200 mg/dL [facility] HDL CHOLESTEROL 38(L) > OR = 40 mg/dL [facility] TRIGLYCERIDES 199(H) <150 mg/dL [facility] LDL-CHOLESTEROL 61 99 mg/dL (calc) [facility] Comment: Reference range: <100 Desirable range <100 mg/dL for primary prevention; ?? <70 mg/dL for patients with CHD or diabetic patients with > or = 2 CHD risk factors. LDL-C is now calculated using the Ariel calculation, which is a validated novel method providing better accuracy than the Friedewald equation in the estimation of LDL-C. Aris EVANGELISTA et al. DEANNA. 2013;310(19): 9689-7406 (http://education.Retail Derivatives Trader/faq/QWY385) CHOL/HDLC RATIO 3.3 <5.0 (calc) [facility] NON-HDL CHOLESTEROL 88 <130 mg/dL (calc) [facility] Comment: For patients with diabetes plus 1 major ASCVD risk factor, treating to a non-HDL-C goal of <100 mg/dL (LDL-C of <70 mg/dL) is considered a therapeutic option. Blood Blood / Unknown 11/15/2023 4 :07 PM EDT 11/15/2023 4:08 PM EDT Narrative [facility] - 11/16/2023 8:26 AM EDT PATIENT UNABLE TO VOID; ADVISED TO RETURN FOR COLLECTION. Garry Oliver [facility] LAB - BLOOD DRAW Final Re sult [facility] [address] [place] [address], [facility] [address] [place] [phone] * (ABNORMAL) COMPREHENSIVE METABOLIC PANEL (11/15/2023 4:07 PM EDT) [facility] Signature GLUCOSE 178(H) 65 - 99 mg/dL [facility] Comment: ?Fasting reference interval For someone without known diabetes, a glucose value >125 mg/dL indicates that they may have diabetes and this should be confirmed with a follow-up test. UREA NITROGEN (BUN) 14 7 - 25 mg/dL [facility] CREATININE (blood) 1.02 0.70 - 1.30 mg/dL [facility] EGFR 85 > OR = 60 mL/min/1. 73m2 [facility] BUN/CREATININE RATIO SEE NOTE: [facility] Comment: ?? Not Reported: BUN and Creatinine are within ?? reference range. ? SODIUM 141 135 - 146 mmol/L [facility] POTASSIUM 4.9 3.5 - 5.3 mmol/L [facility] CHLORIDE 106 98 - 110 mmol/L [facility] CARBON DIOXIDE 29 20 - 32 mmol/L [facility] CALCIUM 9.3 8.6 - 10.3 mg/dL [facility] PROTEIN, TOTAL 6.3 6.1 - 8.1 g/dL [facility] ALBUMIN 4.3 3.6 - 5.1 g/dL [facility] GLOBULIN 2.0 1.9 - 3.7 g/dL (calc) [facility] ALBUMIN/GLOBULI N RATIO 2.2 1.0 - 2.5 (calc) [facility] BILIRUBIN, TOTAL 0.6 0.2 - 1.2 mg/dL [facility] ALKALINE PHOSPHATASE 78 35 - 144 U/L [facility] AST 19 10 - 35 U/L [facility] ALT 27 9 - 46 U/L [facility] Blood Blood / Unknown 11/15/2023 4 :07 PM EDT 11/15/2023 4:08 PM EDT Narrative [facility] - 11/16/2023 8:26 AM EDT PATIENT UNABLE TO VOID; ADVISED TO RETURN FOR COLLECTION. Garry Oliver [facility] LAB - BLOOD DRAW Edited R esult - Final [facility] [address] [address], [facility] [address] [address] * MICROALBUMIN/CREATININE RATIO, URINE, RANDOM (09/06/2022 8:55 AM EST) CREATININE, RANDOM URINE 45 20 - 320 mg/dL [facility] MICROALBUMIN <0.2 mg/dL [email or web address] [facility] Comment: Reference Range Not established MICROALBUMIN/CREA TININE RATIO, RANDOM URINE NOTE <30 [email or web address] [facility] Comment: NOTE: The urine albumin value is [...] EST 09/06/2022 8:56 AM EST Brenda Davis [facility] LAB - NO BLOOD DRAW Chante l Result Performing Organization Address [place] de Phone Number [facility] [address] [place] [address], [facility] [address] ([facility]) [place] [address] * FECAL GLOBIN BY IMMUNOCHEMISTRY (FIT) (01/17/2022 2:38 PM EDT) FECAL GLOBIN BY IMMUNOCHEMISTRY See Note [facility] Comment: ??FECAL GLOBIN BY IMMUNOCHEMISTRY ?Micro Number: ?[id number] ??Test Status: ? Final ??Specimen Source: ?? Stool ??Specimen Quality: ??Adequate ??Fecal Globin: ?Not Detected ??Comment: ? Test results may be invalid as no date of ? collection was provided. Specimens are stable ? for 14 days. Stool Stool specimen / Unknown 01/17/2022 2:38 PM EDT 01/18/2022 1:07 AM EDT Brenda MARSH-C LAB - NO BLOOD DRAW Edit ed Result - Final Performing Organization Address [place] de Phone Number [facility] [address] [address], [place] [employer] [facility] [address] [address] * HEPATITIS C AB W/RFLX HCV RNA, QT, RT PCR (01/18/2021 10:27 AM EDT) Pathologist [facility] HEPATITIS C ANTIBODY NON-REACT GAGAN NON-REACT GAGAN [employer] SIGNAL TO CUT-OFF 0.00 <1.00 [facility] Comment: HCV antibody was non-reactive. There is no laboratory evidence of HCV infection. In most cases, no further action is required. However, if recent HCV exposure is suspected, a test for HCV RNA (test code 98041) is suggested. For additional information please refer to http://education.DICOM Grid/faq/VGH87q5 (This link is being provided for informational/ educational purposes only.) Blood Blood / Unknown 01/18/2021 1 0:27 AM EDT 01/18/2021 10:28 AM EDT Garry Oliver [facility] LAB - BLOOD DRAW Edited R esult - Final [facility] [address] [address], [facility] [address],[place] [address] * HIV 1/2 AG & AB W/RFLX (4TH GEN) (01/18/2021 10:27 AM EDT) Pathologist [facility] HIV AG/AB, 4TH GEN NON-REAC TIVE NON-REAC TIVE [employer] [facility] Comment: HIV-1 antigen and HIV-1/HIV-2 antibodies were [...] ?? For additional information please refer to http://education.Redfin Network.Trellie/faq/PRK155 (This link is being provided for informational/ educational purposes only.) The performance of this assay has not been clinically validated in patients less than 2 years old. Blood Blood / Unknown 01/18/2021 1 0:27 AM EDT 01/18/2021 10:28 AM EDT Garry MARSH LAB - BLOOD DRAW Edited R esult - Final [employer] [facility] [address] [address], [facility] [address] [address] from Last 3 Months or Most Recently Relevant to Health Maintenance Insurance [address] [employer] Care Teams Gaming Cashier Relationship Specialty Start Date End Date Garry Oliver FNP [address] [place] [address] PCP - General Family Medicine, TRAINING DESIGNER 11/09/20
--- OUTSIDE RECORDS SUMMARY | 2024-10-25 13:05 | XMS_ITS | Clinical Summary ---
Author Organization [facility] ity Address [address] [place] [address] Care Team Providers Care Corn Press Operator Name Role Phone Unavailable Primary Care [...] 11/15/2023, 09/06/2022, Additional history exists RSV Immunization Adult Patients (1 - 1-dose 75+ series) 12/29/2039 Pneumococcal [...]
[2024-10-25] MEDS: gadobutroL 10 ML VIAL IVPUSH (13:39)
== END 2024-10-25 12:55 | disposition home or self-care (01) ==
LOC: HO.MRI 12:54
PROVIDERS: PCP Dentist General Practice; Visit Provider Neurological Surgery
DX: Z98.890 Other specified postprocedural states (principal)
CPT/HCPCS: 72158; A9585

== ENCOUNTER → 2024-10-25 13:08 | Outpatient (BNV) | payer MEDICAID, SELFPAY | PROVIDERS: PCP Dentist General Practice; Visit Provider Radiology Diagnostic Radiology | DX: M51.26 Other intervertebral disc displacement, lumbar region (principal); M47.816 Spondylosis without myelopathy or radiculopathy, lumbar region | CPT/HCPCS: 72158 ==

== ENCOUNTER 2024-11-11 11:04 | Outpatient (AMB) | payer MEDICAID, SELFPAY ==
--- NOTE | 2024-11-11 11:39 | HO.SPINEOV ---
Intake Visit Reasons: F/u MRI results Intake Note: Mr. Scott is here today to discuss the results of his MRI. Life Guard Required: No Allergies No Known Allergies Allergy (Verified 10/14/24 14:32) Assessment & Plan Assessment & Plan (1) Lumbar disc herniation: Code(s): M51.26 - Other intervertebral disc displacement, lumbar region Category: Medical (2) Lumbar stenosis with neurogenic claudication: Code(s): M48.062 - Spinal stenosis, lumbar region with neurogenic claudication Category: Medical Plan Dear colleague, On 11/11/2024 I saw for follow-up Yony Scott to review an MRI of the lumbar spine. As you know, he underwent two L4-5 microdiskectomyies. The last surgery was in May 2024. He continues to complain of bilateral radiculopathy, left more than right. Sitting and laying down is comfortable but as soon as he starts walking or standing the pain radiates down both legs. We decided to order a new MRI which shows [id number] L4-5 spinal stenosis predominantly due to a central disc herniation compressing the bilateral L5 nerve roots. I reviewed the MRI in detail with the patient and his . I explained to him that his symptoms of neurogenic claudication are explained by the MRI findings. He already underwent a lumbar microdiskectomy twice and therefore in my opinion the best approach to resolve her symptoms would be to perform a transforaminal lumbar interbody fusion L4-5 to decompress the nerve roots and to prevent another disc herniation. I explained the procedure in detail to the patient. He states that dental implants were rejected any wonder if he his allergic to metal. I told him that I have never seen rejection of spinal implants but that I can avoid the use of a titanium cage by using a peek cage. He will call my office if he wants to proceed. I quoted 70% of success rate as this will be his 3rd spine surgery. I spent 35 minutes in his consult reviewing imaging and discussing plan of care. Daniel Anderson MD, PhD Spine Fellowship Trained Neurosurgeon Director, [facility] Coding Level of Care Code Est Pt Level 4 (75242) Diagnoses Lumbar disc herniation M51.26 Lumbar stenosis with neurogenic claudication M48.062
--- OUTSIDE RECORDS SUMMARY | 2024-11-11 13:22 | XMS_ITS | Clinical Summary ---
Author Organization [facility] Address [address] [place] [address] Care Team Providers [employer] Name Role Phone Garry Oliver Primary Care Provider [phone] Source Comments PLEASE NOTE, if this patient [...] 1,000 mg tabletIndication s:Diabetes mellitus without complication ([facility]) Take 1 Tablet by mouth 2 (two) [...] spasms 30 Tablet 1 03/18/20 24 Active atorvastatin (LIPITOR) 20 mg tabletIndication s:Diabetes mellitus without complication ([facility]) TAKE 1 TABLET BY MOUTH EVERY DAY 90 Tablet 10/03/19 25 Active famotidine (PEPCID) 40 mg tabletIndication s:Gastritis without bleeding, unspecified chronicity, unspecified gastritis type TAKE 1 TABLET BY MOUTH EVERY DAY 90 Tablet 1 10/16/19 25 Active aspirin [address] tabletIndication s:Routine general medical examination at a health care facility TAKE 1 TABLET BY MOUTH EVERY DAY 90 Tablet 10/27/19 25 Active famotidine (PEPCID) 40 mg tabletIndication s:Gastritis without bleeding, unspecified chronicity, unspecified gastritis type TAKE 1 TABLET BY MOUTH EVERY DAY 90 Tablet 1 04/11/20 24 025 Discontinued aspirin [address] tabletIndication s:Routine general medical examination at a health care facility TAKE 1 TABLET BY MOUTH EVERY DAY 90 Tablet 07/30/19 25 025 Discontinued Active Problems Problem Noted Date Diagnosed Date Injury to penis 12/29/2023 Fracture of corpus cavernosum penis 12/26/2023 Diabetes mellitus without complication ([facility]) 08/30/2022 Colonoscopy refused 08/30/2022 Cortical age-related cataract [...] Reports negative workup with stress test in [place] Resolved Problems Problem Noted Date Diagnosed Date [...] 12/15/2024 10:40 AM EDT Office Visit [facility] [address] [place] [id number] Garry Oliver FNP [address] [place] [address] Health Maintenance Due Date Last Done Comments Anxiety Screening 1965 Imm-Hepatitis B (1 of 3 - 19 + 3-dose series) 12/29/1983 Imm-DTaP/Tdap/Td (1 - Tdap) 12/13/2006 12/12/2006 CT Colonography 2009 Colonoscopy 2009 Fecal DNA 2009 Flexible Sigmoidoscopy 2009 Imm-Zoster, Recombinant (1 of 2) 2014 Imm-Pneumococcal (2 of 2 - PCV) 12/09/2019 9 Colorectal Cancer Screening 01/17/2023 Diabetes Foot Exam [...] Screen 07/22/2024 03/18/2024 Lipid Screening 11/14/2024 11/15/2023, 0212/2022, 01/09/2022, Additional history exists Serum Creatinine 12/29/2024 12/30/2023, 01/2024, 12/26/2023, Additional history exists Hypertension Screening (#1) 03/18/2025 Tobacco Screening 03/18/2025 03/18/2024, 08/30/2022 Diabetes HbA1c 03/29/2025 09/26/2024, 04/2 12/2023, 09/06/2022, Additional history exists Retinopathy Screening 10/08/2025 10/08/2024 , 10/15/2023, 10/03/2022, Additional history exists HIV Screening Completed 01/18/2021 Hepatitis C Screening Completed 01/18/2021 [id number] Discontinued Procedures Procedure Name Priority Date/Time Associated Diagnosis Comments IMAGING SCANNED DOCUMENT 10/25/2024 3:00 AM EDT IMAGING SCANNED DOCUMENT 10/25/2024 3:00 AM EDT EYE EXAM 10/08/2024 3:00 AM EDT HEMOGLOBIN [...] EST Immunization declined Diabetes mellitus without complication ([facility]) Colonoscopy refused FECAL GLOBIN BY IMMUNOCHEMISTRY (FIT) Routine 01/17/2022 2:38 PM EDT Colon cancer screening HIV 1/2 AG & AB W/RFLX (4TH GEN) Routine 01/18/2021 10:27 AM EDT Examination, medical, general HEPATITIS C AB W/RFLX HCV RNA, QT, RT PCR Routine 01/18/2021 10:27 AM EDT Examination, medical, general from Last 3 Months or Most Recently Relevant to Health Maintenance Results * IMAGING SCANNED DOCUMENT (10/25/2024 3:00 AM EDT) Only the most recent of2 resultswithin the time period is included. 10/25/2024 3:0 0 AM EDT [facility] SCAN IMAGING Final Res ult * EYE EXAM (10/08/2024 3:00 AM EDT) 10/08/2024 3:00 AM EDT [facility] OTHER Final Res ult * (ABNORMAL) HEMOGLOBIN GLYCOSYLATED A1C (09/26/2024 8:31 AM EST) HEMOGLOBIN A1C 6.4(H) <5.7 % of total Hgb [facility] Comment: For someone without known diabetes, a [...] AM EST 09/26/2024 8:32 AM EST Narrative [facility] [employer] - 09/27/2024 5:55 AM EDT FASTING:YES us Garry Oliver STRUCTURAL IRONWORKER LAB - BLOOD DRAW Final Re sult Performing Organization Address [facility]/ZIP Co de Phone Number [employer] [facility] [address] [address], [employer] [facility] [address] [place] [address] * URINALYSIS, COMPLETE W/REFLEX TO CULTURE (09/26/2024 8:30 AM EST) COLOR YELLOW YELLOW [employer] [facility] APPEARANCE CLEAR CLEAR [employer] [facility] SPECIFIC GRAVITY 1.018 1.001 - 1.035 [employer] [facility] URINE PH 6.0 5.0 - 8.0 [employer] [facility] GLUCOSE NEGATIVE NEGATIVE [employer] [facility] BILIRUBIN NEGATIVE NEGATIVE [employer] [facility] KETONES NEGATIVE NEGATIVE [employer] [facility] OCCULT BLOOD NEGATIVE NEGATIVE [employer] [facility] URINE PROTEIN NEGATIVE NEGATIVE [employer] [facility] NITRITE NEGATIVE NEGATIVE [employer] [facility] LEUKOCYTE ESTERASE NEGATIVE NEGATIVE [employer] [facility] URINE LEUKOCYTES NONE SEEN < OR = 5 [employer] [facility] RBC NONE SEEN < OR = 2 [employer] [facility] SQUAMOUS EPITHELIAL CELLS NONE SEEN < OR = 5 [employer] [facility] BACTERIA NONE SEEN NONE SEEN [employer] [facility] HYALINE CAST NONE SEEN NONE SEEN [employer] [facility] SEE NOTE See Below [employer] [facility] Comment: This urine was analyzed for the presence of WBC, RBC, bacteria, casts, and other formed elements. Only those elements seen were reported. Urine Urine specimen / Unknown 09/26/2024 8:30 AM EST 09/26/2024 8:31 AM EST Narrative [employer] - 09/28/2024 4:17 PM EDT SPLIT 11/15/2023 FROM [id number] Garry Oliver STRUCTURAL IRONWORKER LAB - NO BLOOD DRAW Edite d Result - Final Performing Organization Address [facility]/ZIP Co de Phone Number [employer] [address] [address], [facility] [address] [address] * MICROALBUMIN, URINE, RANDOM (W/O CREAT) (09/26/2024 8:30 AM EST) Pathologist [facility] MICROALBUMIN 0.8 mg/dL [employer] [facility] Comment: Reference Range Not established SEE NOTE See Below [employer] [facility] Comment: The ADA defines abnormalities in [...] AM EST 09/26/2024 8:31 AM EST Narrative [employer] [facility] - 09/28/2024 4:17 PM EDT SPLIT 11/15/2023 FROM [id number] [facility] [place] FNP LAB - NO BLOOD DRAW Final Result Performing Organization Address City/[facility]/ZIP Co de Phone Number [employer] [address] [address], [employer] [address] [address] * RFLX - REFLEXIVE URINE CULTURE (09/26/2024 8:30 AM EST) [facility] REFLEXIVE URINE CULTURE See Below [employer] [facility] Comment:NO CULTURE INDICATED 09/26/2024 8:30 AM EST 09/26/2024 8:31 AM EST Narrative [employer] [facility] - 09/28/2024 4:17 PM EDT SPLIT 11/15/2023 FROM [id number] [facility] - NO BLOOD DRAW Edite d Result - Final Performing Organization Address City/[facility]/ZIP Co de Phone Number [employer] [address] [address], [place] [employer] [facility] [address] [place] [address] * (ABNORMAL) LIPID PANEL (11/15/2023 4:07 PM EDT) CHOLESTEROL, TOTAL 126 <200 mg/dL [employer] [facility] HDL CHOLESTEROL 38(L) > OR = 40 mg/dL [facility] TRIGLYCERIDES 199(H) <150 mg/dL [employer] [facility] LDL-CHOLESTEROL 61 99 mg/dL (calc) [facility] Comment: Reference range: <100 Desirable range <100 mg/dL for primary prevention; ?? <70 mg/dL for patients with CHD or diabetic patients with > or = 2 CHD risk factors. LDL-C is now calculated using the Ariel calculation, which is a validated novel method providing better accuracy than the Friedewald equation in the estimation of LDL-C. Aris EVANGELISTA et al. DEANNA. 2013;310(19): 4500-3731 (http://education.[employer]/faq/UQF849) CHOL/HDLC RATIO 3.3 <5.0 (calc) [facility] NON-HDL CHOLESTEROL 88 <130 mg/dL (calc) [facility] Comment: For patients with diabetes plus 1 major ASCVD risk factor, treating to a non-HDL-C goal of <100 mg/dL (LDL-C of <70 mg/dL) is considered a therapeutic option. Blood Blood / Unknown 11/15/2023 4 :07 PM EDT 11/15/2023 4:08 PM EDT Narrative [employer] [facility] - 11/16/2023 8:26 AM EDT PATIENT UNABLE TO VOID; ADVISED TO RETURN FOR COLLECTION. us Garry Oliver [employer]UCTURAL IRONWORKER LAB - BLOOD DRAW Final Re sult [employer] [address] [address], [employer] [facility] [address] [place] [address] * (ABNORMAL) COMPREHENSIVE METABOLIC PANEL (11/15/2023 4:07 PM EDT) GLUCOSE 178(H) 65 - 99 mg/dL [facility] Comment: ?Fasting reference interval For someone without known diabetes, a glucose value >125 mg/dL indicates that they may have diabetes and this should be confirmed with a follow-up test. UREA NITROGEN (BUN) 14 7 - 25 mg/dL [employer] CREATININE (blood) 1.02 0.70 - 1.30 mg/dL [employer] [place] [facility] EGFR 85 > OR = 60 mL/min/1. 73m2 [employer] [facility] [place] [facility] BUN/CREATININE RATIO SEE NOTE: [employer] [facility] Comment: ?? Not Reported: BUN and Creatinine are within ?? reference range. ? SODIUM 141 135 - 146 mmol/L [employer] [facility] POTASSIUM 4.9 3.5 - 5.3 mmol/L [facility] CHLORIDE 106 98 - 110 mmol/L [employer] [facility] CARBON DIOXIDE 29 20 - 32 mmol/L [employer] [facility] [place] [facility] CALCIUM 9.3 8.6 - 10.3 mg/dL [facility] PROTEIN, TOTAL 6.3 6.1 - 8.1 g/dL [employer] ALBUMIN 4.3 3.6 - 5.1 g/dL [employer] [facility] [place] [facility] GLOBULIN 2.0 1.9 - 3.7 g/dL (calc) [facility] ALBUMIN/GLOBULI N RATIO 2.2 1.0 - 2.5 (calc) [employer] [facility] [place] [facility] BILIRUBIN, TOTAL 0.6 0.2 - 1.2 mg/dL [employer] ALKALINE PHOSPHATASE 78 35 - 144 U/L [employer] [facility] AST 19 10 - 35 U/L [employer] [facility] ALT 27 9 - 46 U/L [employer] [facility] Blood Blood / Unknown 11/15/2023 4 :07 PM EDT 11/15/2023 4:08 PM EDT Narrative [employer] [facility] - 11/16/2023 8:26 AM EDT PATIENT UNABLE TO VOID; ADVISED TO RETURN FOR COLLECTION. us Garry Oliver [facility] LAB - BLOOD DRAW Edited R esult - Final [employer] [facility] [address] [address], [employer] [facility] [address] [place] [address] * MICROALBUMIN/CREATININE RATIO, URINE, RANDOM (09/06/2022 8:55 AM EST) CREATININE, RANDOM URINE 45 20 - 320 mg/dL [employer] [facility] MICROALBUMIN <0.2 mg/dL [facility] Comment: Reference Range Not established MICROALBUMIN/CREA TININE RATIO, RANDOM URINE NOTE <30 [facility] Comment: NOTE: The urine albumin value [...] EST 09/06/2022 8:56 AM EST Brenda Davis STRUCTURAL IRONWORKER-C LAB - NO BLOOD DRAW Chante maria Result Performing Organization Address City/State/[facility] Co de Phone Number [employer] [address] [place] [address], [employer] [address] ([address]) [place] [address] * FECAL GLOBIN BY IMMUNOCHEMISTRY (FIT) (01/17/2022 2:38 PM EDT) Pathologist [facility] FECAL GLOBIN BY IMMUNOCHEMISTRY See Note [employer] [facility] Comment: ??FECAL GLOBIN BY IMMUNOCHEMISTRY ?Micro Number: ?[id number] ??Test Status: ? Final ??Specimen Source: ?? Stool ??Specimen Quality: ??Adequate ??Fecal Globin: ?Not Detected ??Comment: ? Test results may be invalid as no date of ? collection was provided. Specimens are stable ? for 14 days. Stool Stool specimen / Unknown 01/17/2022 2:38 PM EDT 01/18/2022 1:07 AM EDT Bredna Susan STRUCTURAL IRONWORKER-C LAB - NO BLOOD DRAW Edit ed Result - Final Performing Organization Address [facility] Co de Phone Number [employer] [address] [address], [employer] [address],[place] [address] * HEPATITIS C AB W/RFLX HCV RNA, QT, RT PCR (01/18/2021 10:27 AM EDT) Pathologist [facility] HEPATITIS C ANTIBODY NON-REACT GAGAN NON-REACT GAGAN [employer] [facility] SIGNAL TO CUT-OFF 0.00 <1.00 [facility] Comment: HCV antibody was non-reactive. There is no laboratory evidence of HCV infection. In most cases, no further action is required. However, if recent HCV exposure is suspected, a test for HCV RNA (test code 91337) is suggested. For additional information please refer to http://education.[employer]/faq/RPT32e4 (This link is being provided for informational/ educational purposes only.) Blood Blood / Unknown 01/18/2021 1 0:27 AM EDT 01/18/2021 10:28 AM EDT Garry Oliver [employer]UCTURAL IRONWORKER LAB - BLOOD DRAW Edited R esult - Final Performing Organization Address [facility] Co de Phone Number [employer] [place] [facility] [address] [address], [employer] [address],[place] [address] * HIV 1/2 AG & AB W/RFLX (4TH GEN) (01/18/2021 10:27 AM EDT) HIV AG/AB, 4TH GEN NON-REAC TIVE NON-REAC TIVE [employer] [place] [facility] Comment: HIV-1 antigen and HIV-1/HIV-2 antibodies were [...] ?? For additional information please refer to http://education.[employer]/faq/ZOY523 (This link is being provided for informational/ educational purposes only.) The performance of this assay has not been clinically validated in patients less than 2 years old. Blood Blood / Unknown 01/18/2021 1 0:27 AM EDT 01/18/2021 10:28 AM EDT Garry MARSH LAB - BLOOD DRAW Edited R esult - Final [employer] [facility] [address] [address], [employer] [facility] [address] [address] from Last 3 Months or Most Recently Relevant to Health Maintenance Insurance [employer] Care Teams [employer] Relationship Specialty Start Date End Date Garry Oliver FNP [address] [place] [address] PCP - General Family Medicine, DOG HANDLER 11/09/20
--- OUTSIDE RECORDS SUMMARY | 2024-11-11 13:22 | XMS_ITS | Clinical Summary ---
[facility] Address [address] [place] [address] Care Team Providers Care Panelboard Operator Name Role Phone Unavailable Primary Care [...] 01/17/2023 01/17/2022 COVID-19 Vaccine ( season) 2024 Diabetes: Annual Urine Albumin-Creatinine Ratio (uACR) 06/09/2024 09/06/2022 Diabetes: Blood Sugar Control Test (HGBA1C) 06/09/2024 11/15/2023, 01/05/2015 Diabetes: Annual GFR (Glomerular Filtration Rate) 11/14/2024 11/15/2023 Depression Screening 03/18/2025 03/18/2024 Influenza Vaccine (Season Ended) 2025 Cholesterol Screening (Lipid Panel) 11/14/2028 11/15/2023, 11/15/2023, [...] age to complete this topic Meningococcal B Vaccine Aged Out No l onger eligible based on patient's age to complete this topic RSV Immunization Patients Under 20 months Aged Out No longer eligible based on patient's age to complete this topic Varicella Vaccines Aged Out No longer eligible based on patient's age to complete this topic
== END 2024-11-11 12:28 | disposition home or self-care (01) ==
LOC: HO.HNS 11:05
PROVIDERS: PCP Dentist General Practice; Visit Provider Neurological Surgery
DX: M51.26 Other intervertebral disc displacement, lumbar region (principal); M48.062 Spinal stenosis, lumbar region with neurogenic claudication
CPT/HCPCS: 99214

== ENCOUNTER → 2024-11-11 11:04 | Outpatient (BNVA) | payer MEDICAID, SELFPAY | PROVIDERS: PCP Dentist General Practice; Visit Provider Neurological Surgery | DX: M51.26 Other intervertebral disc displacement, lumbar region (principal); M48.062 Spinal stenosis, lumbar region with neurogenic claudication | CPT/HCPCS: 99212 ==